=== PATIENT | male | born 1945 | race Caucasian/White ===

== ENCOUNTER 2018-01-16 08:00 | Outpatient (CLI) | payer MEDICARE, BC ==
[2018-01-16 13:03] LABS: BASOPHILS # (AUTO) 0.1 10^3/uL (0.0-0.1); BASOPHILS % (AUTO) 1.7 %; EOSINOPHILS # (AUTO) 0.1 10^3/uL (0.0-0.7); EOSINOPHILS % (AUTO) 2.2 %; HGB - HEMOGLOBIN 15.7 g/dL (14.0-18.0); LYMPHOCYTES # (AUTO) 1.5 10^3/uL (1.5-3.5); LYMPHOCYTES % (AUTO) 24.7 %; MEAN CORPUSCULAR HEMOGLOBIN 28.8 pg (27.0-31.0); MEAN CORPUSCULAR HGB CONC 33.4 g/dL (32.0-36.0); MEAN CORPUSCULAR VOLUME 86.5 fL (80.0-94.0); MEAN PLATELET VOLUME 8.9 fL (7.4-11.4); MONOCYTES # (AUTO) 0.8 10^3/uL (0.0-1.0); MONOCYTES % (AUTO) 12.9 %; NEUTROPHILS # (AUTO) 3.6 10^3/uL (1.5-6.6); NEUTROPHILS % (AUTO) 58.5 %; PLT - PLATELET COUNT 267 10^3/uL (130-450); RED BLOOD COUNT 5.44 10^6/uL (4.70-6.10); RED CELL DISTRIBUTION WIDTH 13.7 % (12.0-15.0); WHITE BLOOD COUNT 6.2 x10^3/uL (4.8-10.8)
[2018-01-16 13:26] LABS: ALBUMIN 4.4 g/dL (3.2-5.5); ALBUMIN/GLOBULIN RATIO 1.5 (1.0-2.2); ALKALINE PHOSPHATASE 60 IU/L (42-121); ALT ALANINE AMINOTRANSFERASE 21 IU/L (10-60); AST ASPARTATE AMINOTRANSFERASE 23 IU/L (10-42); BILIRUBIN,TOTAL 0.8 mg/dL (0.2-1.0); BUN - BLOOD UREA NITROGEN 13 mg/dL (6-20); CALCIUM 9.4 mg/dL (8.5-10.3); CARBON DIOXIDE - CO2 30 mmol/L (21-32); CHLORIDE 102 mmol/L (101-111); CHOL/HDL RATIO 5.9 (<5.0); CHOLESTEROL 205 mg/dL; CREATININE 1.1 mg/dL (0.6-1.2); GFR - MDRD 66 (>89); GLUCOSE 100 mg/dL (70-100); HDL CHOLESTEROL 35 mg/dL; LDL CHOLESTEROL,CALCULATED 144 mg/dL; LDL/HDL RATIO 4.1 (<3.6); SODIUM 138 mmol/L (135-145); TOTAL PROTEIN 7.4 g/dL (6.7-8.2); VLDL CHOLESTEROL 26 mg/dL
== END 2018-01-16 08:01 ==
LOC: LAB.WCP 08:00
PROVIDERS: ATTEND Family Medicine
DX: Z00.00 Encounter for general adult medical examination without abnormal findings (principal); Z13.29 Encounter for screening for other suspected endocrine disorder; Z13.220 Encounter for screening for lipoid disorders; Z12.5 Encounter for screening for malignant neoplasm of prostate; Z13.0 Encounter for screening for diseases of the blood and blood-forming organs and certain disorders involving the immune mechanism
CPT/HCPCS: 36415; 80053; 80061; 84443; 85025; G0103; 83721; 84153

== ENCOUNTER 2018-08-22 07:42 | Outpatient (CLI) | payer MEDICARE, BC ==
[2018-08-22 12:55] LABS: BASOPHILS # (AUTO) 0.1 10^3/uL (0.0-0.1); BASOPHILS % (AUTO) 1.1 %; EOSINOPHILS # (AUTO) 0.1 10^3/uL (0.0-0.7); EOSINOPHILS % (AUTO) 1.8 %; HGB - HEMOGLOBIN 15.3 g/dL (14.0-18.0); LYMPHOCYTES # (AUTO) 1.7 10^3/uL (1.5-3.5); LYMPHOCYTES % (AUTO) 25.8 %; MEAN CORPUSCULAR HEMOGLOBIN 28.5 pg (27.0-31.0); MEAN CORPUSCULAR HGB CONC 33.9 g/dL (32.0-36.0); MEAN PLATELET VOLUME 8.7 fL (7.4-11.4); MONOCYTES # (AUTO) 0.7 10^3/uL (0.0-1.0); MONOCYTES % (AUTO) 10.8 %; NEUTROPHILS # (AUTO) 3.9 10^3/uL (1.5-6.6); NEUTROPHILS % (AUTO) 60.5 %; PLT - PLATELET COUNT 253 10^3/uL (130-450); RED BLOOD COUNT 5.36 10^6/uL (4.70-6.10); RED CELL DISTRIBUTION WIDTH 13.6 % (12.0-15.0); WHITE BLOOD COUNT 6.4 x10^3/uL (4.8-10.8)
[2018-08-22 13:35] LABS: ALBUMIN 4.1 g/dL (3.2-5.5); ALBUMIN/GLOBULIN RATIO 1.3 (1.0-2.2); ALKALINE PHOSPHATASE 69 IU/L (42-121); ALT ALANINE AMINOTRANSFERASE 26 IU/L (10-60); AST ASPARTATE AMINOTRANSFERASE 26 IU/L (10-42); BILIRUBIN,TOTAL 0.6 mg/dL (0.2-1.0); BUN - BLOOD UREA NITROGEN 12 mg/dL (6-20); CALCIUM 9.2 mg/dL (8.5-10.3); CARBON DIOXIDE - CO2 30 mmol/L (21-32); CHLORIDE 105 mmol/L (101-111); CHOL/HDL RATIO 5.4 (<5.0); CHOLESTEROL 212 mg/dL; CREATININE 0.9 mg/dL (0.6-1.2); GFR - MDRD 83 (>89); GLUCOSE 89 mg/dL (70-100); HDL CHOLESTEROL 39 mg/dL; LDL CHOLESTEROL,CALCULATED 146 mg/dL; LDL/HDL RATIO 3.7 (<3.6); SODIUM 140 mmol/L (135-145); TOTAL PROTEIN 7.3 g/dL (6.7-8.2); VLDL CHOLESTEROL 27 mg/dL
== END 2018-08-22 23:59 | disposition home or self-care (01) ==
LOC: LAB.WCP 07:42
PROVIDERS: ATTEND Family Medicine
DX: Z13.0 Encounter for screening for diseases of the blood and blood-forming organs and certain disorders involving the immune mechanism (principal); Z13.220 Encounter for screening for lipoid disorders; Z12.5 Encounter for screening for malignant neoplasm of prostate; E78.00 Pure hypercholesterolemia, unspecified; Z13.29 Encounter for screening for other suspected endocrine disorder
CPT/HCPCS: 36415; 80053; 80061; 84443; 85025; G0103; 83721; 84153

== ENCOUNTER 2018-12-26 08:10 | Day surgery (SDC) | payer MEDICARE, BC ==
[2018-12-26] MEDS ORDERED: LACTATED RINGERS 1,000 ML IV ONE (08:55)
[2018-12-26] MEDS ORDERED: LIDO GARGLE 30 ML BOTTLE ONE (09:42)
[2018-12-26] MEDS ORDERED: LIDO GARGLE 30 ML BOTTLE PO ONE (10:04)
[2018-12-26] MEDS ORDERED: MIDAZOLAM 2 MG/2 ML VIAL IVP ONE (10:40)
[2018-12-26] MEDS ORDERED: fentaNYL 250 MCG/5 ML VIAL IVP ONE (10:40)
[2018-12-26 11:12] VITALS: BP 106/70
== END 2018-12-26 08:11 | disposition home or self-care (01) ==
LOC: SDS 08:10
PROVIDERS: ATTEND Internal Medicine Gastroenterology
PROC: 0DB68ZZ Excision of Stomach, Via Natural or Artificial Opening Endoscopic (ICD-10-PCS; 2018-12-26)
PROC: 0DJD8ZZ Inspection of Lower Intestinal Tract, Via Natural or Artificial Opening Endoscopic (ICD-10-PCS; principal; 2018-12-26 09:45)
PROC: 0DB38ZX Excision of Lower Esophagus, Via Natural or Artificial Opening Endoscopic, Diagnostic (ICD-10-PCS; 2018-12-26 09:45)
DX: R19.4 Change in bowel habit (principal); K57.30 Diverticulosis of large intestine without perforation or abscess without bleeding; K21.9 Gastro-esophageal reflux disease without esophagitis; K31.7 Polyp of stomach and duodenum; K44.9 Diaphragmatic hernia without obstruction or gangrene; R14.0 Abdominal distension (gaseous)
CPT/HCPCS: 43239; 45378; A9270; J3010; J7120

== ENCOUNTER 2019-06-04 15:22 | Outpatient (CLI) | payer MEDICARE, BC ==
--- NOTE | 2019-06-05 10:41 | XRAY Report ---
Reason: FOOT PAIN Procedure Date: 06/04/2019 Accession Number: [id number] / [id number] Procedure: XRN - Foot 3 View LT CPT Code: FULL RESULT: EXAM: LEFT FOOT RADIOGRAPHY EXAM DATE: 06/04/2019 03:38 PM. CLINICAL HISTORY: Foot pain. COMPARISON: None. TECHNIQUE: 3 views. FINDINGS: Bones: Calcaneal spurs. No fractures or bone lesions. Joints: Normal. No subluxations. Soft Tissues: Normal. No soft tissue swelling. IMPRESSION: 1. No acute abnormality seen in the left foot. 2. Calcaneal spurs. RADIA
== END 2019-06-04 15:23 | disposition home or self-care (01) ==
LOC: DI.N 15:22
PROVIDERS: ATTEND Family Medicine
DX: M77.32 Calcaneal spur, left foot (principal)

== ENCOUNTER 2019-07-21 07:37 | Outpatient (CLI) | payer MEDICARE, BC ==
[2019-07-21 12:21] LABS: BASOPHILS # (AUTO) 0.1 10^3/uL (0.0-0.1); BASOPHILS % (AUTO) 1.3 %; EOSINOPHILS # (AUTO) 0.1 10^3/uL (0.0-0.7); EOSINOPHILS % (AUTO) 1.9 %; HGB - HEMOGLOBIN 15.8 g/dL (14.0-18.0); LYMPHOCYTES # (AUTO) 1.6 10^3/uL (1.5-3.5); LYMPHOCYTES % (AUTO) 25.7 %; MEAN CORPUSCULAR HGB CONC 31.7 g/dL (32.0-36.0); MEAN CORPUSCULAR VOLUME 88.5 fL (80.0-94.0); MEAN PLATELET VOLUME 10.7 fL (7.4-11.4); MONOCYTES # (AUTO) 0.6 10^3/uL (0.0-1.0); NEUTROPHILS # (AUTO) 3.8 10^3/uL (1.5-6.6); NEUTROPHILS % (AUTO) 60.8 %; PLT - PLATELET COUNT 280 10^3/uL (130-450); RED BLOOD COUNT 5.64 10^6/uL (4.70-6.10); RED CELL DISTRIBUTION WIDTH 13.3 % (12.0-15.0); WHITE BLOOD COUNT 6.2 x10^3/uL (4.8-10.8)
[2019-07-21 12:40] LABS: ALBUMIN 4.1 g/dL (3.2-5.5); ALBUMIN/GLOBULIN RATIO 1.3 (1.0-2.2); ALKALINE PHOSPHATASE 56 IU/L (42-121); ALT ALANINE AMINOTRANSFERASE 23 IU/L (10-60); AST ASPARTATE AMINOTRANSFERASE 21 IU/L (10-42); BILIRUBIN,TOTAL 1.2 mg/dL (0.2-1.0); BUN - BLOOD UREA NITROGEN 12 mg/dL (6-20); CALCIUM 9.6 mg/dL (8.5-10.3); CARBON DIOXIDE - CO2 31 mmol/L (21-32); CHLORIDE 104 mmol/L (101-111); CHOL/HDL RATIO 6.1 (<5.0); CHOLESTEROL 206 mg/dL; CREATININE 0.9 mg/dL (0.6-1.2); GFR - MDRD 83 (>89); GLUCOSE 106 mg/dL (70-100); HDL CHOLESTEROL 34 mg/dL; LDL CHOLESTEROL,CALCULATED 134 mg/dL; LDL/HDL RATIO 3.9 (<3.6); SODIUM 142 mmol/L (135-145); TOTAL PROTEIN 7.3 g/dL (6.7-8.2); VLDL CHOLESTEROL 38 mg/dL
== END 2019-07-21 07:38 | disposition home or self-care (01) ==
LOC: LAB.N 07:37
PROVIDERS: ATTEND Family Medicine
DX: G62.9 Polyneuropathy, unspecified (principal); E78.00 Pure hypercholesterolemia, unspecified; R03.0 Elevated blood-pressure reading, without diagnosis of hypertension; R04.0 Epistaxis
CPT/HCPCS: 36415; 80053; 80061; 82306; 82607; 82746; 83036; 83721; 84443; 85025

== ENCOUNTER 2019-09-26 09:29 | Outpatient (CLI) | payer MEDICARE, BC | END 2019-09-26 23:59 | disposition home or self-care (01) | LOC: LAB.N 09:29 | PROVIDERS: ATTEND Family Medicine | DX: E55.9 Vitamin D deficiency, unspecified (principal) | CPT/HCPCS: 36415; 82306 ==

== ENCOUNTER 2019-10-03 14:27 | Outpatient (CLI) | payer MEDICARE, BC ==
[2019-10-03 19:28] LABS: HB2 TOTAL 16.1 g/dL; HEMOGLOBIN A1C 0.6 g/dL; HEMOGLOBIN A1C % 5.6 % (4.6-6.2)
== END 2019-10-03 23:59 | disposition home or self-care (01) ==
LOC: LAB.N 14:27
PROVIDERS: ATTEND Family Medicine
DX: R73.9 Hyperglycemia, unspecified (principal)
CPT/HCPCS: 36415; 83036

== ENCOUNTER 2020-02-04 07:07 | Outpatient (CLI) | payer MEDICARE, BC | END 2020-02-04 23:59 | disposition home or self-care (01) | LOC: LAB.WCP 07:07 | PROVIDERS: ATTEND Family Medicine | DX: E55.9 Vitamin D deficiency, unspecified (principal) | CPT/HCPCS: 36415; 82306 ==

== ENCOUNTER 2020-04-16 07:28 | Outpatient (CLI) | payer MEDICARE, BC | END 2020-04-16 23:59 | disposition home or self-care (01) | LOC: LAB.WCP 07:28 | PROVIDERS: ATTEND Family Medicine | DX: I10 Essential (primary) hypertension (principal); G62.9 Polyneuropathy, unspecified | CPT/HCPCS: 36415; 84630 ==

== ENCOUNTER 2020-07-06 07:00 | Outpatient (CLI) | payer MEDICARE, BC ==
[2020-07-06 12:54] LABS: ALBUMIN 4.2 g/dL (3.2-5.5); ALBUMIN/GLOBULIN RATIO 1.3 (1.0-2.2); BILIRUBIN,TOTAL 0.8 mg/dL (0.2-1.0); CALCIUM 9.4 mg/dL (8.5-10.3); CREATININE 1.3 mg/dL (0.6-1.2); TOTAL PROTEIN 7.4 g/dL (6.7-8.2)
== END 2020-07-06 23:59 | disposition home or self-care (01) ==
LOC: LAB.WCP 07:00
PROVIDERS: ATTEND Family Medicine
DX: N18.30 Chronic kidney disease, stage 3 unspecified (principal)
CPT/HCPCS: 36415; 80053

== ENCOUNTER → 2020-08-23 | Outpatient (CLI) | payer MEDICARE, BC ==
[2020-08-23 14:03] LABS: ALBUMIN 4.2 g/dL (3.2-5.5); ALBUMIN/GLOBULIN RATIO 1.5 (1.0-2.2); BILIRUBIN,TOTAL 0.6 mg/dL (0.2-1.0); CALCIUM 9.6 mg/dL (8.5-10.3); CREATININE 1.1 mg/dL (0.6-1.2)
== END ==
LOC: LAB.WCP 08:00
PROVIDERS: ATTEND Internal Medicine
DX: N18.30 Chronic kidney disease, stage 3 unspecified (principal)
CPT/HCPCS: 36415; 80053

== ENCOUNTER 2020-08-31 07:09 | Outpatient (CLI) | payer MEDICARE, BC ==
[2020-08-31 13:23] LABS: CHOL/HDL RATIO 6.2 (<5.0); CHOLESTEROL 229 mg/dL; HDL CHOLESTEROL 37 mg/dL; LDL CHOLESTEROL,CALCULATED 162 mg/dL; LDL/HDL RATIO 4.4 (<3.6); VLDL CHOLESTEROL 30 mg/dL
[2020-08-31 13:30] LABS: CREATININE,URINE 61.8 mg/dL
[2020-08-31 13:33] LABS: MICROALBUMIN,URINE < 0.2 mg/dL (0-300.0)
[2020-08-31 13:51] LABS: HEMOGLOBIN A1c% 5.5 % (4.27-6.07)
[2020-09-03 16:52] LABS: ALBUMIN 4.2 g/dL (3.8-4.8); ALPHA 1 GLOBULIN 0.3 g/dL (0.2-0.3); ALPHA 2 GLOBULIN 0.8 g/dL (0.5-0.9); BETA 1 GLOBULIN 0.4 g/dL (0.4-0.6); BETA 2 GLOBULIN 0.3 g/dL (0.2-0.5)
== END 2020-08-31 23:59 | disposition home or self-care (01) ==
LOC: LAB.WCP 07:09
PROVIDERS: ATTEND Internal Medicine
DX: G62.9 Polyneuropathy, unspecified (principal); I10 Essential (primary) hypertension; R73.9 Hyperglycemia, unspecified
CPT/HCPCS: 36415; 80061; 81599; 82043; 82570; 82607; 83036; 83721; 84155; 84165; 84443; 86334

== ENCOUNTER → 2020-09-03 | Outpatient (CLI) | payer MEDICARE, BC ==
[2020-09-06 19:47] LABS: ALBUMIN 4.2 g/dL (3.8-4.8); ALPHA 1 GLOBULIN 0.3 g/dL (0.2-0.3); ALPHA 2 GLOBULIN 0.7 g/dL (0.5-0.9); BETA 1 GLOBULIN 0.4 g/dL (0.4-0.6); BETA 2 GLOBULIN 0.3 g/dL (0.2-0.5); GAMMA GLOBULIN 1.1 g/dL (0.8-1.7)
== END ==
LOC: LAB.WCP 08:00
PROVIDERS: ATTEND Internal Medicine
DX: G62.9 Polyneuropathy, unspecified (principal)
CPT/HCPCS: 84155; 84165

== ENCOUNTER 2021-03-22 08:00 | Outpatient (CLI) | payer MEDICARE, BC ==
[2021-03-22 13:06] LABS: BUN - BLOOD UREA NITROGEN 22 mg/dL (6-20); CALCIUM 9.2 mg/dL (8.5-10.3); CARBON DIOXIDE - CO2 26 mmol/L (21-32); CHLORIDE 106 mmol/L (101-111); CHOL/HDL RATIO 7.5 (<5.0); CHOLESTEROL 210 mg/dL; CREATININE 1.2 mg/dL (0.6-1.2); GFR - MDRD 59 (>89); GLUCOSE 96 mg/dL (70-100); HDL CHOLESTEROL 28 mg/dL; LDL CHOLESTEROL,CALCULATED 144 mg/dL; LDL/HDL RATIO 5.1 (<3.6); POTASSIUM 3.9 mmol/L (3.5-5.0); SODIUM 144 mmol/L (135-145); TRIGLYCERIDES 190 mg/dL; VLDL CHOLESTEROL 38 mg/dL
== END 2021-03-22 23:59 | disposition home or self-care (01) ==
LOC: LAB.WCP 08:00
PROVIDERS: ATTEND Internal Medicine
DX: I10 Essential (primary) hypertension (principal)
CPT/HCPCS: 36415; 80048; 80061; 83721

== ENCOUNTER 2021-06-22 15:07 | Outpatient (CLI) | payer MEDICARE, BC ==
[2021-06-22 18:18] LABS: ALT ALANINE AMINOTRANSFERASE 19 IU/L (10-60); BUN - BLOOD UREA NITROGEN 16 mg/dL (6-20); CALCIUM 9.2 mg/dL (8.5-10.3); CARBON DIOXIDE - CO2 31 mmol/L (21-32); CHLORIDE 102 mmol/L (101-111); CHOL/HDL RATIO 3.9 (<5.0); CHOLESTEROL 125 mg/dL; CREATININE 1.1 mg/dL (0.6-1.2); GFR - MDRD 65 (>89); GLUCOSE 94 mg/dL (70-100); HDL CHOLESTEROL 32 mg/dL; LDL CHOLESTEROL,CALCULATED 43 mg/dL; LDL/HDL RATIO 1.3 (<3.6); POTASSIUM 4.1 mmol/L (3.5-5.0); SODIUM 140 mmol/L (135-145); TRIGLYCERIDES 250 mg/dL; VLDL CHOLESTEROL 50 mg/dL
== END 2021-06-22 23:59 | disposition home or self-care (01) ==
LOC: LAB.WCP 15:07
PROVIDERS: ATTEND Internal Medicine
DX: E78.5 Hyperlipidemia, unspecified (principal); I10 Essential (primary) hypertension
CPT/HCPCS: 36415; 80048; 80061; 83721; 84460

== ENCOUNTER 2021-09-15 08:00 | Outpatient (CLI) | payer MEDICARE, BC ==
[2021-09-15 12:26] LABS: BASOPHILS # (AUTO) 0.1 10^3/uL (0.0-0.1); BASOPHILS % (AUTO) 1.3 %; EOSINOPHILS # (AUTO) 0.2 10^3/uL (0.0-0.7); EOSINOPHILS % (AUTO) 2.1 %; HCT - HEMATOCRIT 45.4 % (42.0-52.0); HGB - HEMOGLOBIN 14.6 g/dL (14.0-18.0); LYMPHOCYTES % (AUTO) 28.1 %; MEAN CORPUSCULAR HEMOGLOBIN 28.7 pg (27.0-31.0); MEAN CORPUSCULAR HGB CONC 32.2 g/dL (32.0-36.0); MEAN CORPUSCULAR VOLUME 89.2 fL (80.0-94.0); MEAN PLATELET VOLUME 11.7 fL (7.4-11.4); MONOCYTES # (AUTO) 0.8 10^3/uL (0.0-1.0); NEUTROPHILS # (AUTO) 3.9 10^3/uL (1.5-6.6); NEUTROPHILS % (AUTO) 56.2 %; PLT - PLATELET COUNT 241 10^3/uL (130-450); RED BLOOD COUNT 5.09 10^6/uL (4.70-6.10); RED CELL DISTRIBUTION WIDTH 13.2 % (12.0-15.0)
[2021-09-15 12:45] LABS: ALBUMIN/GLOBULIN RATIO 1.3 (1.0-2.2); ALKALINE PHOSPHATASE 55 IU/L (42-121); ALT ALANINE AMINOTRANSFERASE 16 IU/L (10-60); AST ASPARTATE AMINOTRANSFERASE 18 IU/L (10-42); BILIRUBIN,TOTAL 0.8 mg/dL (0.2-1.0); BUN - BLOOD UREA NITROGEN 14 mg/dL (6-20); CALCIUM 9.3 mg/dL (8.5-10.3); CARBON DIOXIDE - CO2 27 mmol/L (21-32); CHLORIDE 104 mmol/L (101-111); CHOL/HDL RATIO 3.6 (<5.0); CHOLESTEROL 135 mg/dL; CREATININE 1.2 mg/dL (0.6-1.2); GFR - MDRD 59 (>89); GLUCOSE 97 mg/dL (70-100); HDL CHOLESTEROL 37 mg/dL; LDL CHOLESTEROL,CALCULATED 79 mg/dL; LDL/HDL RATIO 2.1 (<3.6); POTASSIUM 3.7 mmol/L (3.5-5.0); SODIUM 139 mmol/L (135-145); TOTAL PROTEIN 7.2 g/dL (6.7-8.2); TRIGLYCERIDES 95 mg/dL; VLDL CHOLESTEROL 19 mg/dL
[2021-09-15 12:55] LABS: THYROID STIMULATING HORMONE 1.42 uIU/mL (0.34-5.60)
== END 2021-09-15 23:59 | disposition home or self-care (01) ==
LOC: LAB.WCP 08:00
PROVIDERS: ATTEND Internal Medicine
DX: I10 Essential (primary) hypertension (principal); E78.5 Hyperlipidemia, unspecified; N40.0 Benign prostatic hyperplasia without lower urinary tract symptoms; Z79.899 Other long term (current) drug therapy
CPT/HCPCS: 36415; 80053; 80061; 83721; 84153; 84443; 85025

== ENCOUNTER 2022-01-31 07:06 | Outpatient (CLI) | payer MEDICARE, BC ==
[2022-01-31 11:53] LABS: CREATININE,URINE 116.1 mg/dL; MICROALBUM/CREATININE RATIO,UR 4.3 ug/mg (<30.0); MICROALBUMIN,URINE 0.5 mg/dL (0-300.0)
[2022-01-31 11:56] LABS: ESTIMATED AVERAGE GLUCOSE 111 mg/dL (70-100); HEMOGLOBIN A1c% 5.5 % (4.27-6.07)
[2022-01-31 11:58] LABS: THYROID STIMULATING HORMONE 1.33 uIU/mL (0.34-5.60)
[2022-01-31 12:02] LABS: CALCIUM 9.4 mg/dL (8.5-10.3); CREATININE 1.1 mg/dL (0.6-1.2); POTASSIUM 3.8 mmol/L (3.5-5.0)
== END 2022-01-31 07:07 | disposition home or self-care (01) ==
LOC: LAB.N 07:06
PROVIDERS: ATTEND Internal Medicine
DX: E53.8 Deficiency of other specified B group vitamins (principal); R73.9 Hyperglycemia, unspecified; R68.89 Other general symptoms and signs
CPT/HCPCS: 36415; 80048; 82043; 82570; 82607; 83036; 84443

== ENCOUNTER 2022-06-26 15:23 | Outpatient (CLI) | payer MEDICARE, BC ==
--- NOTE | 2022-06-27 17:34 | XRAY Report ---
PROCEDURE: Ribs Bilat w/Chest 4 View INDICATIONS: CHEST WALL PX TECHNIQUE: 6 views of the bilateral ribs were acquired, along with a single view chest. COMPARISON: None FINDINGS: Surgical changes and devices: None. Bones and chest wall: No fractures or dislocations. No suspicious bony lesions. Overlying soft tis sues appear unremarkable. Lungs and pleura: No pleural effusions or pneumothorax. Lungs appear clear. Mediastinum: Mediastinal contours appear normal. Heart size is normal. IMPRESSION: No obvious displaced rib fracture is seen. No suspicious rib lesion. No acute cardiopulmonary patholo gy. Reviewed by: Kofi Ramirez MD on 06/27/2022 5:33 PM PDT Approved by: Kofi Ramirez MD on 06/27/2022 5:33 PM PDT Station ID: [id number]
== END 2022-06-26 15:24 | disposition home or self-care (01) ==
LOC: DI.N 15:23
PROVIDERS: ATTEND Internal Medicine
DX: R07.89 Other chest pain (principal)

== ENCOUNTER 2022-08-31 07:28 | Outpatient (CLI) | payer MEDICARE, BC ==
[2022-08-31 12:29] LABS: BASOPHILS # (AUTO) 0.1 10^3/uL (0.0-0.1); BASOPHILS % (AUTO) 1.2 %; EOSINOPHILS # (AUTO) 0.2 10^3/uL (0.0-0.7); EOSINOPHILS % (AUTO) 2.6 %; HCT - HEMATOCRIT 46.4 % (42.0-52.0); HGB - HEMOGLOBIN 14.7 g/dL (14.0-18.0); LYMPHOCYTES # (AUTO) 1.5 10^3/uL (1.5-3.5); LYMPHOCYTES % (AUTO) 26.4 %; MEAN CORPUSCULAR HEMOGLOBIN 28.4 pg (27.0-31.0); MEAN CORPUSCULAR HGB CONC 31.7 g/dL (32.0-36.0); MEAN CORPUSCULAR VOLUME 89.7 fL (80.0-94.0); MEAN PLATELET VOLUME 11.4 fL (7.4-11.4); MONOCYTES # (AUTO) 0.7 10^3/uL (0.0-1.0); MONOCYTES % (AUTO) 12.2 %; NEUTROPHILS # (AUTO) 3.3 10^3/uL (1.5-6.6); NEUTROPHILS % (AUTO) 57.4 %; PLT - PLATELET COUNT 247 10^3/uL (130-450); RED BLOOD COUNT 5.17 10^6/uL (4.70-6.10); RED CELL DISTRIBUTION WIDTH 13.3 % (12.0-15.0); WHITE BLOOD COUNT 5.7 x10^3/uL (4.8-10.8)
[2022-08-31 12:49] LABS: ESTIMATED AVERAGE GLUCOSE 120 mg/dL (70-100); HEMOGLOBIN A1c% 5.8 % (4.27-6.07)
[2022-08-31 12:50] LABS: THYROID STIMULATING HORMONE 1.41 uIU/mL (0.34-5.60)
[2022-08-31 13:13] LABS: ALBUMIN 4.1 g/dL (3.2-5.5); ALBUMIN/GLOBULIN RATIO 1.3 (1.0-2.2); ALKALINE PHOSPHATASE 52 IU/L (42-121); ALT ALANINE AMINOTRANSFERASE 20 IU/L (10-60); AST ASPARTATE AMINOTRANSFERASE 23 IU/L (10-42); BILIRUBIN,TOTAL 0.8 mg/dL (0.2-1.0); BUN - BLOOD UREA NITROGEN 26 mg/dL (6-20); CALCIUM 9.4 mg/dL (8.5-10.3); CARBON DIOXIDE - CO2 28 mmol/L (21-32); CHLORIDE 105 mmol/L (101-111); CHOL/HDL RATIO 3.5 (<5.0); CHOLESTEROL 131 mg/dL; CREATININE 1.2 mg/dL (0.6-1.2); GFR - MDRD 59 (>89); GLUCOSE 97 mg/dL (70-100); HDL CHOLESTEROL 37 mg/dL; LDL CHOLESTEROL,CALCULATED 74 mg/dL; POTASSIUM 4.5 mmol/L (3.5-5.0); SODIUM 141 mmol/L (135-145); TOTAL PROTEIN 7.3 g/dL (6.7-8.2); TRIGLYCERIDES 102 mg/dL; VLDL CHOLESTEROL 20 mg/dL
== END 2022-08-31 07:29 | disposition home or self-care (01) ==
LOC: LAB.N 07:28
PROVIDERS: ATTEND Internal Medicine
DX: E78.5 Hyperlipidemia, unspecified (principal); R73.9 Hyperglycemia, unspecified; E55.9 Vitamin D deficiency, unspecified; E53.8 Deficiency of other specified B group vitamins; N40.0 Benign prostatic hyperplasia without lower urinary tract symptoms; F43.20 Adjustment disorder, unspecified; I49.3 Ventricular premature depolarization
CPT/HCPCS: 36415; 80053; 80061; 82306; 82607; 83036; 83721; 84153; 84443; 85025

== ENCOUNTER 2022-12-25 15:54 | Outpatient (CLI) | payer MEDICARE, BC ==
--- NOTE | 2022-12-26 12:53 | Ultrasound Report ---
PROCEDURE: Duplex Lwr Ext Arterial Bilat INDICATIONS: BILATERAL CLAUDICATION TECHNIQUE: Color and pulse Doppler interrogation was performed of both lower extremity arterial systems, with im age documentation. COMPARISON: None FINDINGS: Right lower extremity: Common femoral artery: 188.5 cm/sec, with triphasic flow. Deep femoral artery: 139.4 cm/sec, with biphasic flow. Proximal superficial femoral artery: 118.8 cm/sec, with biphasic flow. Mid superficial femoral artery: 129.1 cm/sec, with triphasic flow. Distal superficial femoral artery: 113.1 cm/sec, with triphasic flow. Popliteal artery: 151.4 cm/sec, with triphasic flow. Posterior tibial artery: 66.0 cm/sec, with triphasic flow. Anterior tibial artery/dorsalis pedis: 100.6 cm/sec, with triphasic flow. Ball-scale imaging description: Patent vessels with normal waveforms. Left lower extremity: Common femoral artery: 128.5 cm/sec, with triphasic flow. Deep femoral artery: 149.4 cm/sec, with triphasic flow. Proximal superficial femoral artery: 117.5 cm/sec, with triphasic flow. Mid superficial femoral artery: 135.0 cm/sec, with triphasic flow. Distal superficial femoral artery: 137.6 cm/sec, with triphasic flow. Popliteal artery: 102.3 cm/sec, with triphasic flow. Posterior tibial artery: 64.9 cm/sec, with triphasic flow. Anterior tibial artery/dorsalis pedis: 151.1 cm/sec, with biphasic flow. Ball-scale imaging description: Patent vessels with normal waveforms. IMPRESSION: Unremarkable bilateral lower extremity duplex arterial ultrasound. Reviewed by: Sreekanth Becerril MD on 12/26/2022 12:52 PM PDT Approved by: Sreekanth Becerril MD on 12/26/2022 12:52 PM PDT Station ID: [id number]
== END 2022-12-25 15:55 | disposition home or self-care (01) ==
LOC: DI 15:54
PROVIDERS: ATTEND Internal Medicine
DX: I73.9 Peripheral vascular disease, unspecified (principal)
CPT/HCPCS: 93925

== ENCOUNTER 2023-04-19 07:10 | Outpatient (CLI) | payer MEDICARE, BC ==
[2023-04-19 12:25] LABS: BASOPHILS # (AUTO) 0.1 10^3/uL (0.0-0.1); BASOPHILS % (AUTO) 1.2 %; EOSINOPHILS # (AUTO) 0.1 10^3/uL (0.0-0.7); EOSINOPHILS % (AUTO) 2.5 %; HCT - HEMATOCRIT 42.1 % (42.0-52.0); HGB - HEMOGLOBIN 13.8 g/dL (14.0-18.0); LYMPHOCYTES # (AUTO) 1.5 10^3/uL (1.5-3.5); LYMPHOCYTES % (AUTO) 25.6 %; MEAN CORPUSCULAR HEMOGLOBIN 29.6 pg (27.0-31.0); MEAN CORPUSCULAR HGB CONC 32.8 g/dL (32.0-36.0); MEAN CORPUSCULAR VOLUME 90.3 fL (80.0-94.0); MONOCYTES # (AUTO) 0.7 10^3/uL (0.0-1.0); MONOCYTES % (AUTO) 11.4 %; NEUTROPHILS # (AUTO) 3.4 10^3/uL (1.5-6.6); NEUTROPHILS % (AUTO) 59.1 %; PLT - PLATELET COUNT 270 10^3/uL (130-450); RED BLOOD COUNT 4.66 10^6/uL (4.70-6.10); RED CELL DISTRIBUTION WIDTH 12.9 % (12.0-15.0); WHITE BLOOD COUNT 5.7 x10^3/uL (4.8-10.8)
[2023-04-19 13:05] LABS: ALBUMIN 4.3 g/dL (3.2-5.5); ALBUMIN/GLOBULIN RATIO 1.5 (1.0-2.2); ALKALINE PHOSPHATASE 54 IU/L (42-121); ALT ALANINE AMINOTRANSFERASE 18 IU/L (10-60); AST ASPARTATE AMINOTRANSFERASE 19 IU/L (10-42); BILIRUBIN,TOTAL 0.6 mg/dL (0.2-1.0); BUN - BLOOD UREA NITROGEN 26 mg/dL (6-20); CALCIUM 9.8 mg/dL (8.5-10.3); CARBON DIOXIDE - CO2 29 mmol/L (21-32); CHLORIDE 105 mmol/L (101-111); CHOL/HDL RATIO 3.6 (<5.0); CHOLESTEROL 129 mg/dL; CREATININE 1.2 mg/dL (0.6-1.3); GFR - MDRD 59 (>89); GLUCOSE 106 mg/dL (74-104); HDL CHOLESTEROL 36 mg/dL; LDL CHOLESTEROL,CALCULATED 65 mg/dL; LDL/HDL RATIO 1.8 (<3.6); POTASSIUM 3.9 mmol/L (3.5-4.5); SODIUM 141 mmol/L (135-145); TOTAL PROTEIN 7.1 g/dL (6.4-8.9); TRIGLYCERIDES 140 mg/dL (48-352); VLDL CHOLESTEROL 28 mg/dL
[2023-04-19 13:09] LABS: THYROID STIMULATING HORMONE 1.22 uIU/mL (0.34-5.60)
[2023-04-19 13:19] LABS: CREATININE,URINE 140.8 mg/dL; MICROALBUMIN,URINE 0.7 mg/dL
[2023-04-19 13:26] LABS: ESTIMATED AVERAGE GLUCOSE 120 mg/dL (70-100); HEMOGLOBIN A1c% 5.8 % (4.27-6.07)
[2023-04-23 17:08] LABS: A/G RATIO 1.3 (0.7-1.7); ALBUMIN 3.6 g/dL (2.9-4.4); ALPHA-1-GLOBULIN 0.2 g/dL (0.0-0.4); ALPHA-2-GLOBULIN 0.7 g/dL (0.4-1.0); GAMMA GLOBULIN 1.1 g/dL (0.4-1.8); IMMUNOGLOBULIN A (IGA) 220 mg/dL (61-437); IMMUNOGLOBULIN G (IGG) 1010 mg/dL (603-1613); IMMUNOGLOBULIN M (IGM) 44 mg/dL (15-143); M-SPIKE Not Observed g/dL (Not Observed); PROTEIN TOTAL 6.6 g/dL (6.0-8.5)
== END 2023-04-19 07:11 | disposition home or self-care (01) ==
LOC: LAB.N 07:10
PROVIDERS: ATTEND Internal Medicine
DX: E78.5 Hyperlipidemia, unspecified (principal); R73.9 Hyperglycemia, unspecified; E53.8 Deficiency of other specified B group vitamins; N40.0 Benign prostatic hyperplasia without lower urinary tract symptoms; I10 Essential (primary) hypertension; G62.9 Polyneuropathy, unspecified
CPT/HCPCS: 36415; 80053; 80061; 82043; 82570; 82607; 82784; 83036; 83721; 84153; 84155; 84165; 84443; 85025; 86334

== ENCOUNTER 2023-07-08 09:37 | Observation (INO) | payer MEDICARE, BC ==
--- NOTE | 2023-07-08 09:48 | ED Physician Documentation ---
History of Present Illness - Stated complaint Stated Complaint: SOA,CHEST PX,HIGH BP - History obtained from History obtained from: Patient - Additonal information Additional information: 77-year-old gentleman comes the emergency department by private vehicle accompanied by his son-in-law for the evaluation of shortness of breath and chest pressure. He said very mild intermittent chest pressure nonexertional for the last 2 weeks. Over the last several days he has been breathless especially at night or when he is trying to sleep or with exertion. He is also had some pedal edema. He has a history of hypertension and hyperlipidemia. No heart or lung problems. No history of CHF. About 2 months ago he was on hydrochlorothiazide but that was stopped due to orthostatic lightheadedness. He notes his blood pressure has been quite high the last few days. 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 - Present Medications Home Medications: Ambulatory Orders Medication Instructions Recorded Confirmed Gabapentin [Neurontin] 400 mg PO TID 07/08/23 Rosuvastatin Calcium [Crestor] 10 mg PO QPM 07/08/23 Tamsulosin [Flomax] 0.4 mg PO DAILY 07/08/23 lisinopriL [Lisinopril] 40 mg PO DAILY 07/08/23 - Allergies Allergies/Adverse Reactions: Allergies Allergy/AdvReac Type Severity Reaction Status Date / Time No Known Drug Allergies Allergy Verified 07/08/23 10:52 PD ED PE NORMAL - Vitals Vital signs reviewed: Yes - General General: Alert and oriented X 3, No acute distress, Other (Mild hard of hearing) - HEENT HEENT: PERRL, EOMI - Neck Neck: Supple, no meningeal sign, No bony TTP - Cardiac Cardiac: Other (Irregularly irregular without murmur) - Respiratory Respiratory: No respiratory distress, Clear bilaterally - Abdomen Abdomen: Non tender - Back Back: No CVA TTP, No spinal TTP - Derm Derm: Normal color, Warm and dry - Extremities Extremities: No calf tenderness / cord, Other (1+ pitting pedal edema, symmetric) - Neuro Neuro: Alert and oriented X 3, Normal speech Results - Vitals Vitals: Vital Signs - 24 hr 07/08/23 09:48 Temperature 36.7 C Heart Rate 82 Respiratory 22 Rate Blood Pressure 165/112 H O2 Saturation 97 Oxygen O2 Source Room air - EKG (time done) 0945 EKG releavant findings:: EKG personally interpreted by author of this note. Relevant findings are: Rhythm: Atrial fibrillation (w pvcs) [place]: Normal Ischemia: Non specific changes. No: ST elevation c/w ischemia - Labs Labs: Laboratory Tests 07/08/23 07/08/23 07/08/23 10:03 10:03 10:03 WBC 8.7 RBC 5.13 Hgb 14.8 Hct 45.1 MCV 87.9 MCH 28.8 MCHC 32.8 RDW 12.7 Plt Count 199 MPV 11.1 Neut # (Auto) 6.4 Lymph # (Auto) 1.3 L [place] # (Auto) 0.8 Eos # (Auto) 0.1 Baso # (Auto) 0.1 Absolute Nucleated RBC 0.00 Nucleated RBC % 0.0 D-Dimer Sodium 142 Potassium 3.7 Chloride 109 Carbon Dioxide 26 Anion Gap 7.0 BUN 21 H Creatinine 1.2 Estimated GFR (MDRD) 59 L Glucose 104 Calcium 9.4 Total Bilirubin 0.7 AST 15 ALT 13 Alkaline Phosphatase 67 Troponin I High Sens 26.2 H* B-Natriuretic Peptide 614 H Total Protein 6.8 Albumin 4.2 Globulin 2.6 Albumin/Globulin Ratio 1.6 Lipase 34 07/08/23 11:51 WBC RBC Hgb Hct MCV MCH MCHC RDW Plt Count MPV Neut # (Auto) Lymph # (Auto) [place] # (Auto) Eos # (Auto) Baso # (Auto) Absolute Nucleated RBC Nucleated RBC % D-Dimer 250.5 Sodium Potassium Chloride Carbon Dioxide Anion Gap BUN Creatinine Estimated GFR (MDRD) Glucose Calcium Total Bilirubin AST ALT Alkaline Phosphatase Troponin I High Sens B-Natriuretic Peptide Total Protein Albumin Globulin Albumin/Globulin Ratio Lipase - Rads (name of study) Single view chest x-ray shows low lung volumes, atelectasis right base, mild pulmonary edema, borderline cardiomegaly Relevant Findings:: Final report received, EMP independent interpretation of test PD Medical Decision Making - ED course ED course: 77-year-old gentleman presents with several weeks of chest tightness now breathlessness. He is found to be in atrial fibrillation with frequent PVCs. No murmur. Lungs are clear but he does have peripheral evidence of mild fluid overload. And he is quite hypertensive. Probably CHF related to A-fib. We will check cardiac markers and give a dose of Imdur for blood pressure pending work-up. 77-year-old gentleman presents with signs and symptoms of new onset heart failure in the setting of also probably new onset atrial fibrillation. He has a history of neither. He does appear modestly fluid overloaded. Work-up in the emergency department shows an EKG with new onset A-fib, frequent PVCs. CBC and CMP are relatively normal. Troponin modestly elevated at 26.2 which I do not think represents acute ischemia given the longevity of his symptoms. His BNP is elevated at 614 consistent with heart failure and also has mild pulmonary edema on x-ray. He is hypertensive but rate controlled and was administered Imdur here for blood pressure control and 20 mg of IV Lasix as he is Lasix chyna. Will place in observation and spoke with Dr. Thomson for same at 10:50 AM. Departure - Departure Disposition: ED Place in Observation Clinical Impression: Chest pain Qualifiers: Chest pain type: unspecified Qualified Code(s): R07.9 - Chest pain, unspecified Atrial fibrillation Qualifiers: Atrial fibrillation type: unspecified Qualified Code(s): I48.91 - Unspecified atrial fibrillation Congestive heart failure Qualifiers: Heart failure type: unspecified Heart failure chronicity: acute Qualified Code(s): I50.9 - Heart failure, unspecified Condition: Serious Forms: PCP List
[2023-07-08] MEDS ORDERED: ISOSORBIDE MONONITRATE ER 30 MG TABLET PO STA (09:53)
[2023-07-08 10:09] LABS: BASOPHILS # (AUTO) 0.1 10^3/uL (0.0-0.1); BASOPHILS % (AUTO) 0.9 %; EOSINOPHILS # (AUTO) 0.1 10^3/uL (0.0-0.7); EOSINOPHILS % (AUTO) 0.9 %; HCT - HEMATOCRIT 45.1 % (42.0-52.0); HGB - HEMOGLOBIN 14.8 g/dL (14.0-18.0); LYMPHOCYTES # (AUTO) 1.3 10^3/uL (1.5-3.5); LYMPHOCYTES % (AUTO) 14.8 %; MEAN CORPUSCULAR HEMOGLOBIN 28.8 pg (27.0-31.0); MEAN CORPUSCULAR HGB CONC 32.8 g/dL (32.0-36.0); MEAN CORPUSCULAR VOLUME 87.9 fL (80.0-94.0); MEAN PLATELET VOLUME 11.1 fL (7.4-11.4); MONOCYTES # (AUTO) 0.8 10^3/uL (0.0-1.0); NEUTROPHILS # (AUTO) 6.4 10^3/uL (1.5-6.6); NEUTROPHILS % (AUTO) 74.2 %; PLT - PLATELET COUNT 199 10^3/uL (130-450); RED BLOOD COUNT 5.13 10^6/uL (4.70-6.10); RED CELL DISTRIBUTION WIDTH 12.7 % (12.0-15.0); WHITE BLOOD COUNT 8.7 x10^3/uL (4.8-10.8)
--- NOTE | 2023-07-08 10:14 | XRAY Report ---
PROCEDURE: Chest 1 View X-Ray INDICATIONS: Chest Pain TECHNIQUE: One view of the chest was acquired. COMPARISON: 06/26/2022 FINDINGS: Surgical changes and devices: None. Lungs and pleura: Mild generalized interstitial prominence can be seen. Streaky likely atelectasis can be seen in the right lung base. Mediastinum: Mediastinal contours appear normal. Heart size is at the upper limits of normal. Bones and chest wall: No suspicious bony lesions. Age-appropriate degenerative changes are seen. M ild dextroconvex scoliotic curvature is seen. Overlying soft tissues appear unremarkable. IMPRESSION: Low lung volumes, with likely atelectasis at the right lung base. Mild generalized interstitial prominence can be seen. Please consider mild pulmonary edema. Heart size is at the upper limits of normal for portable technique. Reviewed by: Tai Roberts MD on 07/08/2023 9:13 AM MAYRA Approved by: Tai Roberts MD on 07/08/2023 9:13 AM MAYRA Station ID: [id number]
[2023-07-08] MEDS ORDERED: FUROSEMIDE 20 MG/2 ML VIAL IVP STA (10:17)
[2023-07-08 10:39] LABS: ALBUMIN 4.2 g/dL (3.2-5.5); ALBUMIN/GLOBULIN RATIO 1.6 (1.0-2.2); BILIRUBIN,TOTAL 0.7 mg/dL (0.2-1.0); CALCIUM 9.4 mg/dL (8.5-10.3); CREATININE 1.2 mg/dL (0.6-1.3); POTASSIUM 3.7 mmol/L (3.5-4.5); TOTAL PROTEIN 6.8 g/dL (6.4-8.9)
[2023-07-08 10:46] LABS: TROPONIN I HIGH SENSITIVITY 26.2 ng/L (2.3-19.7)
[2023-07-08] MEDS ORDERED: ONDANSETRON ODT 4 MG TABLET TL PRN (11:41)
[2023-07-08] MEDS ORDERED: ONDANSETRON 4 MG/2 ML VIAL IVP PRN (11:41)
[2023-07-08] MEDS ORDERED: SODIUM CHLORIDE FLUSH 0.9% 10 ML SYRINGE IVP PRN (11:41)
--- NOTE | 2023-07-08 12:01 | HISTORY & PHYSICAL EXAMINATION ---
Chief Complaint - Chief Complaint Chief Complaint: Dyspnea on exertion and orthopnea History of Present Illness - Admitted From Admitted From:: Home - History Obtained From [facility] History obtained from: Dr. Ashley Exam Limitations: None - History of Present Illness HPI Comment/Other: 77-year-old white male who is followed by Dr. Nnamdi Gonzales in our [facility]. Problems usually consist of hypertension, claudication, GERD, hyperlipidemia. He has no previous cardiac history. For the last 2 weeks he has had intermittent chest pressure. It happened at rest or with walking. It did not matter. Then in the last few days he began having shortness of breath especially at night when he tried to lay down. Then the shortness of breath started to happen with exertion. He has been developing some swollen ankles. He recently had his hydrochlorothiazide stopped because it made him lightheaded. This was about 2 months ago. He denies fever, cough, chills. He does have a history of diastolic heart failure. Echocardiogram in 2020 was done in [facility]. Ejection fraction 50 to 55%. Grade 1 diastolic dysfunction. Right ventricle mildly dilated. Right ventricle systolic function normal. Left atrium mildly dilated. No significant valvular heart disease. Could not measure tricuspid jet. Prior to that he has a history of PVCs and some chest discomfort and a myocardial perfusion study had normal sinus rhythm with frequent PVCs. Some ventricular bigeminy. The stress and resting supine images revealed a small to moderate size, mild to moderately decreased perfusion of the inferior wall and inferoapex which improved during prone. However prone images continue to have mildly decreased perfusion. It was nondiagnostic for reversible ischemia. And it was felt to have diaphragmatic attenuation. With this current episode of chest discomfort and shortness of breath, son-in-law drove him to the emergency room and his temperature was 36.7, heart rate 82, respirations 22, blood pressure 165/112. On exam he is alert and oriented with mild deafness. He has an irregularly irregular heart rate. Clear lungs. And 1+ pitting edema that is symmetrical. Telemetry and EKG shows atrial fibrillation which is a new diagnosis for him. Troponin #1 is 26.2. BNP is 614. He has atelectasis at the right lung base. Mild generalized interstitial prominence. Consider pulmonary edema. Heart size upper limits of normal for portable technique. He received 20 mg of Lasix, isosorbide mononitrate 60 mg. This patient status and new presentation was discussed with the ER provider. Because of his diastolic heart failure, I think we will be placing him in observation status to gently diurese him overnight. Rate control will be with metoprolol and I will anticoagulate since is unclear when he went into A-fib. His current complaint is that of a headache. Got worse with the isosorbide. I warned him that Motrin and Aleve or any other nonsteroidal can be used while he is on a DOAC. History - Past Medical History Cardiovascular: reports: Congestive heart failure (Diastolic), Hypertension, High cholesterol, Arrhythmia (PVCs in the past. 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), Colon polyps (2002), Other (Diverticulosis) : reports: Benign prostate hypertrophy, Renal insuffiency (Chronic kidney disease stage II) HEENT: reports: Other (Chronic rhinitis, Epistaxis, cataracts) Psych: reports: None Musculoskeletal: reports: Other (Neck spasms) Derm: reports: Other (Seborrheic dermatitis) MRSA Hx?: No - Past Surgical History General: reports: Colonoscopy (2012, 2018), Other (Inguinal hernia repair1986 with mesh) Ortho: reports: Rotator cuff repair (1997), Spine surgery (Lumbar laminectomy 1986) /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 Dad has Alzheimer's disease. 1 brother of which he is not in contact with. 1 daughter who is completely healthy. No high blood pressure, diabetes, cancer, heart attack Living arrangement: At home Living Situation: Alone Social History Notes: Never smoked. Current non-smoker. Used to smoke a pipe. No history of alcohol abuse. of metastatic colon cancer in early 2021. From [place]. Near [place]. 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 Moved here 5 years ago and lives next to daughter. She is his DPOA. Meds/Allgy - Home Medications Home Medications: Ambulatory Orders Medication Instructions Recorded Confirmed Acetaminophen/Diphenhydramine [Cvs 1 each PO QPM 07/08/23 07/08/23 Acetaminophen Pm Caplet] Aspirin Chewable [St Jone 81 mg PO DAILY 07/08/23 07/08/23 Aspirin] Gabapentin [Neurontin] 400 mg PO BID 07/08/23 07/08/23 Multivitamin [Theragran] 1 each PO DAILY 07/08/23 07/08/23 Omeprazole Magnesium 20 mg PO DAILY 07/08/23 07/08/23 Psyllium Husk [Fiber] 0.52 gm PO DAILY 07/08/23 07/08/23 Rosuvastatin Calcium [Crestor] 10 mg PO QPM 07/08/23 07/08/23 Tamsulosin [Flomax] 0.4 mg PO QPM 07/08/23 07/08/23 lisinopriL [Lisinopril] 40 mg PO QPM 07/08/23 07/08/23 - Allergies Allergies/Adverse Reactions: Allergies Allergy/AdvReac Type Severity Reaction Status Date / Time No Known Drug Allergies Allergy Verified 07/08/23 10:52 Review of Systems - Constitutional Constitutional: denies: Fatigue, Fever, Chills, Malaise, Weakness, Diaphoresis, Night sweats - Eyes Eyes: reports: Vision loss (due to age and cataracts). denies: Amaurosis, Blurred vision - Ears, Nose & Throat Ears, Nose & Throat: reports: Hearing loss, Tinnitus, Postnasal drainage (chronic) - Cardiovascular Cariovascular: reports: Irregular heart rate, Palpitations, Chest pain, Edema, Exertional dyspnea, Decr. exercise tolerance - Respiratory Respiratory: reports: SOB at rest, SOB with exertion. denies: Cough, Sputum production, Wheezing - Gastrointestinal Gastrointestinal: reports: Diarrhea (Off-and-on x years, resulted in a colonoscopy. Alternated with constipation. [place] to have IBS), Other (Occasional sticking of his food but eventually passes). denies: Abdominal pain, Abdominal distention - Genitourinary Genitourinary: reports: Frequency, Nocturia, Other (Incomplete bladder emptying) - Musculoskeletal Musculoskeletal: reports: Stiffness, Other (Hears a grinding sound in his neck when he turns his head [id number]). denies: Muscle pain, Back pain, Muscle aches - Integumentary Integumentary: denies: Rash, Pruritis, Lesions, Dryness - Neurological Neurological: reports: Headache (Pretty much daily. Generalized. MRI of head - June 2016.Has 1 today.), Numbness (feet. really cold sometimes and SAMSON negative), Incoordination (Due to dizziness. Especially with hydrochlorothiazide and doxazosin. Years of dizziness if he moves his head right to left.). denies: General weakness - Psychiatric Psychiatric: reports: Depression (Especially in the winter. It is gotten to where he really hates being here in the winter. He would like to start an antidepressant.), Anxiety, Other (He does not want to be a burden to his daughter. But his daughter let him know that him not sharing things with her and not telling her things is a burden.). denies: Suicidal, Hallucinations, Homicidal - Endocrine Endocrine: reports: Intolerance to cold. denies: Polyuria, Polydypsia, Polyphagia - Hematologic/Lymphatic Hematologic/Lymphatic: denies: Anemia, Bruising, Petechiae Prior Level of Functionality: Independent with activities of daily living. Drives a car. 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 Exam - Vital Signs Reviewed Vital Signs: Yes Vital Signs: Vital Signs x48h Temp Pulse Resp BP Pulse Ox 07/08/23 09:48 36.7 C 82 22 165/112 H 97 - Physical Exam General Appearance: positive: No acute distress, Alert, Other (Tanned elderly gentleman who looks stated age, male pattern baldness, white doran, comfortable. Joking with daughter, joking with me.) Eyes Bilateral: positive: PERRL, EOMI ENT: positive: Pharynx nml, Other (Voice is a little hoarse. He says that is chronic.) Neck: positive: No JVD. negative: Stiff neck Respiratory: positive: No respiratory distress. negative: Wheezes, Rales, Rhonchi Cardiovascular: positive: Irregularly irregular, Bradycardia (Received metoprolol and his pulse is in the 40s). negative: Systolic murmur Peripheral Pulses: positive: 1+ Abdomen: positive: Non-tender, No organomegaly, Nml bowel sounds, No distention Skin: positive: Warm, Dry Extremities: positive: Full ROM, Pedal edema (1+ around ankles) Neurologic/Psychiatric: positive: Oriented x3, CN's nml (2-12), Motor nml Conclusion/Plan - Problem List (1) New onset atrial fibrillation Conclusion/Plan: This is a gentleman who has a history of PVCs and palpitations in the past. 2020 cardiac work-up only revealed mild diastolic heart failure and he did have sinus rhythm at that time. And a diaphragmatic attenuation of nuclear medicine imaging of the inferior wall. Plan: Observation status Serial troponins TSH. No history of thyroid disease. TSH has been normal in his PCP office. D-dimer. If it is elevated he will need a CT pulmonary angiogram. But he has no risk factors for DVT. Homans negative. Does have edema. Eliquis for anticoagulation Metoprolol for rate control Plan for discharge tomorrow if his rate is under control and he is tolerating anticoagulation. He will need an outpatient echocardiogram. triage technician is not available on the weekends. She only arrives Sunday through . Today is Sunday. Follow-up with PCP in the next 1 to 2 weeks. (2) Acute on chronic diastolic heart failure Conclusion/Plan: Already has a previous history of chronic diastolic heart failure. I think the atrial fibrillation has taken away some of his ejection fraction, and he may be having intermittent tachycardia. He recently had hydrochlorothiazide discontinued. This may have been temporarily compensating him. He has already received Lasix 20 mg IV push in the ER. I will assess his response to this over the course of today before giving him another dose. In diastolic heart failure, the treatment is diuretics. He may have to go back on hydrochlorothiazide. (3) Elevated troponin Conclusion/Plan: Most likely due to demand ischemia. We will repeat every 6 hours for 2 more levels. (4) Hypertension Conclusion/Plan: Blood pressure is 165/112. Has not been repeated in the emergency room as of 12:41 PM. I believe they are significantly short staffed. We will recheck his blood pressure when he gets to [facility]. Home medications are lisinopril 40 mg daily, I will resume that. We will also reassess his blood pressure in the face of adding metoprolol to the lisinopril. Qualifiers: Hypertension type: primary hypertension Qualified Code(s): I10 - Essential (primary) hypertension (5) BPH associated with nocturia Conclusion/Plan: We will make sure he stays on his Flomax. (6) GERD (gastroesophageal reflux disease) Conclusion/Plan: He has a history of stricture due to reflux. Does not describe dilation. He is on a proton pump inhibitor on a regular basis. I have advised him that he can no longer use any type of nonsteroidal therapy for the future. He will have reflux and be on a DOAC. As such I would like to reduce his risk of esophagitis or ulcers. Qualifiers: Esophagitis presence: esophagitis presence not specified Qualified Code(s): K21.9 - Gastro-esophageal reflux disease without esophagitis (7) Do not resuscitate status Conclusion/Plan: He has a POLST form at home. Was getting around to filling it out and having Dr. Gonzales signed it. He and his daughter asked if I could fill 1 out here and they can take at home already signed by . I was fine with that. He wants to be a DO NOT RESUSCITATE if he does not have a pulse or pressure. But he still wants interventions such as pneumonia, surgeries, blood transfusions when needed. If we have treated his problems and is not getting better and it looks like he is going to , let him (8) Seasonal affective disorder Conclusion/Plan: Ever since he has moved here from [place], he finds the [place] very depressing. He gets withdrawn, cranky. Anxious and he feels cooped in. He is talked about this with Dr. Gonzales and wonders if he could start some treatment. He and Dr. Gonzales were going to talk about this. I gave him information on depressive disorder. He can read about it and tell me which the symptoms applied to him. And I also asked him to fill out a PHQ-9. I told him that after he is done these questionnaires, we can talk about it more. If he is wanting therapy I will most likely start with an SSRI. But I am also going to be recommending cognitive behavioral therapy. (9) Headache Conclusion/Plan: Please happen on an almost daily basis. Generalized. No aura or visual parks es. He drinks 10 cups of coffee a day. Plan: Probable tension headaches. Cut back on the caffeine I warned him that he cannot take any nonsteroidal therapy on a DOAC. He will only be able to take Tylenol. Consider massage for the head. Do it once or twice a month. He rolled his eyes and his daughter laughed and said he is not can to do it. I told him what could it hurt. It is only once or twice. See if it works. If it does not he does not have to keep on doing it. Qualifiers: Headache type: tension-type - Lab Results Lab results reviewed: Yes Fish Bones: 07/08/23 10:03 07/08/23 10:03 - Diagnostic Imaging Results Diagnostic Imaging Results: positive: Final report reviewed - EKG Results EKG Interpreted Independently: No Core Measures - Anticipated LOS I expect patient to be DC'd or transferred within 96 hours.: Yes - DVT/VTE - Prophylaxis VTE/DVT Prophylaxis med ordered at admit?: Yes
[2023-07-08] MEDS: METOPROLOL TARTRATE 25 MG TABLET PO SCH ×2 (13:18→20:11)
[2023-07-08] MEDS: APIXABAN 5 MG TABLET PO SCH ×2 (13:19→20:08)
[2023-07-08] MEDS: ACETAMINOPHEN 325 MG TABLET PO PRN ×3 (14:12→23:57)
--- NOTE | 2023-07-08 15:35 | PHARMACY PROGRESS NOTE ---
- Best Possible Medication History Admit Date and Time: 07/08/23 1141 Processed by: Pharmacy Medication History completed: Yes Secondary Source(s): Physician records, Pharmacy records, Insurance records As the person ultimately responsible for medication therapy, providers are able to order a medication from an existing home medication list in [facility] via the "Reconcile Routine" prior to Confirmation of that medication by wind farm support specialist. Such practice is discouraged except when the physician, in their clinical judgment, deems that a medical need exists for a medication without regard to previous use.
[2023-07-08] MEDS: oxyCODONE 5 MG TABLET PO PRN ×2 (16:43→23:03)
[2023-07-08] MEDS: SODIUM CHLORIDE FLUSH 0.9% 10 ML SYRINGE IVP SCH ×2 (20:10→23:57)
[2023-07-09] MEDS: METOPROLOL TARTRATE 25 MG TABLET PO SCH (08:39)
[2023-07-09] MEDS: APIXABAN 5 MG TABLET PO SCH (08:39)
[2023-07-09] MEDS ORDERED: METOPROLOL TARTRATE 25 MG TABLET PO SCH (08:40)
[2023-07-09] MEDS: SODIUM CHLORIDE FLUSH 0.9% 10 ML SYRINGE IVP SCH (08:42)
[2023-07-09] MEDS: ACETAMINOPHEN 325 MG TABLET PO PRN (08:52)
[2023-07-09 09:43] VITALS: BP 169/70; O2SAT 97
--- NOTE | 2023-07-09 11:13 | Discharge Plan ---
Discharge Plan Problem Reviewed?: Yes Disposition: Home, Self Care Condition: Fair Prescriptions: Apixaban [Eliquis] 5 mg PO BID #60 tab Diet: Regular Activity Restrictions: Activity as Tolerated Shower Restrictions: No Driving Restrictions: No Health Concerns: You presented to the hospital with shortness of breath every time he lay down, p rogressive shortness of breath with exertion. In the emergency room we found you to have new onset atrial fibrillation where your heart beats irregularly irregular. The pacemaker in your heart is not working very well. So sometimes your heart rate is fast, and sometimes your heart rate is slow into the 30s. The main risk with atrial fibrillation is stroke because small clots can form in your heart that are then pumped out. They leave your heart and give you a stroke. Plan of Treatment: 1. Please see Dr. Gonzales in follow-up. Dr. Gonzales needs to order the [facility] things. + An echocardiogram. You had 1 2 years ago and it was normal. But a repeat one needs to be done to evaluate the chamber size of your heart. + A repeat stress test. + An event monitor. While your heartbeat is in atrial fibrillation, it is not running very fast. And if I give you a medicine to slow it down, your heart rate gets too slow. At night when you go to sleep your heart rate is in the 30s. As such I would like to have your heart monitored for at least 30 days to see how fast and how slow your heart is. This is because you need to be evaluated for possible pacemaker. 2. Because of your shortness of breath, you may have diastolic heart failure. I would like you to go on Lasix 20 mg a day. Because Lasix will make you urinate potassium into your urine, I will also send you home on a low-dose of potassium. With atrial fibrillation we usually give you medicine to slow down your heart rate. However, your heart rate seems to be in the 80s. Which is controlled. And you drop into the 30s at night when you are asleep. This may explain why you are short of breath. So I am holding off on giving you the rate lowering drug and only giving you the Lasix. 3. Because the atrial fibrillation will increase your risk of stroke, I am sending you home on a blood thinner. You are worried about the cost of the blood thinner. I did prescribe Eliquis which is covered by your insurance. If, however, you find that the cost of this is too much please asked Dr. Gonzales if you can be started on Coumadin which is a generic, much cheaper drug Care Goals: To have your shortness of breath go away Assessment: Patient is alert, oriented to person place time and situation and promises to follow through. Last night, on admission, his daughter was at the bedside and heard much of this plan. No Smoking: If you smoke, Please STOP! Call for help. Follow-up with: Nnamdi Gonzales MD [Primary Care Provider] -
--- NOTE | 2023-07-09 11:18 | DISCHARGE SUMMARY ---
"Discharge Summary Admit Date: 07/08/23 Discharge Date: 07/09/23 Discharging Provider: Marilou Thomson MD Primary Care Provider: Nnamdi Gonzales MD Condition at Discharge: Fair Discharge Disposition: 01 Home, Self Care - DIAGNOSES Discharge Diagnoses with Status of Each Condition: 1. New onset atrial fibrillation 2. Acute on chronic systolic heart failure 3. Elevated troponin 4. Hypertension 5. BPH associated with nocturia 6. GERD 7. DO NOT RESUSCITATE status 8. Seasonal affective disorder - HPI History of Present Illness: 77-year-old white male who is followed by Dr. Nnamdi Gonzales in our [facility] clinics. Problems usually consist of hypertension, claudication, GERD, hyperlipidemia. He has no previous cardiac history. For the last 2 weeks he has had intermittent chest pressure. It happened at rest or with walking. It did not matter. Then in the last few days he began having shortness of breath especially at night when he tried to lay down. Then the shortness of breath started to happen with exertion. He has been developing some swollen ankles. He recently had his hydrochlorothiazide stopped because it made him lightheaded. This was about 2 months ago. He denies fever, cough, chills. He does have a history of diastolic heart failure. Echocardiogram in 2020 was done in [facility]. Ejection fraction 50 to 55%. Grade 1 diastolic dysfunction. Right ventricle mildly dilated. Right ventricle systolic function normal. Left atrium mildly dilated. No significant valvular heart disease. Could not measure tricuspid jet. Prior to that he has a history of PVCs and some chest discomfort and a myocardial perfusion study had normal sinus rhythm with frequent PVCs. Some ventricular bigeminy. The stress and resting supine images revealed a small to moderate size, mild to moderately decreased perfusion of the inferior wall and inferoapex which improved during prone. However prone images continue to have mildly decreased perfusion. It was nondiagnostic for reversible ischemia. And it was felt to have diaphragmatic attenuation. With this current episode of chest discomfort and shortness of breath, son-in-law drove him to the emergency room and his temperature was 36.7, heart r ate 82, respirations 22, blood pressure 165/112. On exam he is alert and oriented with mild deafness. He has an irregularly irregular heart rate. Clear lungs. And 1+ pitting edema that is symmetrical. Telemetry and EKG shows atrial fibrillation which is a new diagnosis for him. Troponin #1 is 26.2. BNP is 614. He has atelectasis at the right lung base. Mild generalized interstitial prominence. Consider pulmonary edema. Heart size upper limits of normal for portable technique. He received 20 mg of Lasix, isosorbide mononitrate 60 mg. This patient status and new presentation was discussed with the ER provider. Because of his diastolic heart failure, I think we will be placing him in observation status to gently diurese him overnight. Rate control will be with metoprolol and I will anticoagulate since is unclear when he went into A-fib. His current complaint is that of a headache. Got worse with the isosorbide. I warned him that Motrin and Aleve or any other nonsteroidal can be used while he is on a DOAC. - Past Medical History Cardiovascular: reports: Congestive heart failure (Diastolic), Hypertension, High cholesterol, Arrhythmia (PVCs in the past. 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), Colon polyps (2002), Other (Diverticulosis) : reports: Benign prostate hypertrophy, Renal insuffiency (Chronic kidney disease stage II) HEENT: reports: Other (Chronic rhinitis, Epistaxis, cataracts) Psych: reports: None Musculoskeletal: reports: Other (Neck spasms) Derm: reports: Other (Seborrheic dermatitis) MRSA Hx?: No - Past Surgical History General: reports: Colonoscopy (2012, 2018), Other (Inguinal hernia repair1986 with mesh) Ortho: reports: Rotator cuff repair (1997), Spine surgery (Lumbar laminectomy 1986) /AUTO CLAIM REPRESENTATIVE: reports: Other (Vasectomy) - CONSULTS | PROCEDURES Procedures: Chest x-ray with low lung volumes, with likely atelectasis at the right lung base. Mild generalized interstitial prominence and possible pulmonary edema. Heart size upper level of normal for portable technique. - HOSPITAL COURSE Hospital Course: During his overnight stay, he really only needed 1 dose of metoprolol. The rest of his doses were held because of bradycardia. In the middle of the night he would dip into the 30s. It was during those times that he would feel that he was more short of breath with orthopnea. Serial troponins were never really el evated. They were a positive set of troponins but all stayed in the same range which I think is more demand ischemia. As such he was not discharged on a rate control agent and I am asking that he get an event monitor to verify whether this patient has sick sinus syndrome. He will also need a repeat echocardiogram. Our donor services technician is not available until July 10. As such he needs one in the outpatient setting with possibly new stress test.If this work- up is negative, possible obstructive sleep apnea evaluation with a sleep study might help. Because of the manifestations of diastolic heart failure I have started him on Lasix 20 mg daily with potassium 10 mEq daily. The medication may be temporary until he is seen by his primary care provider to be evaluated. He has benign prostatic hypertrophy associated with nocturia. I explained to him that Benadryl and Tylenol PM may be problematic for a gentleman his age with a large prostate. He has not commenced. He did fill out a questionnaire with regards to depression during the season. Questionnaire was 1.4 feeling down depressed or hopeless for several days, tired and having little energy for several days, trouble concentrating on things for several days. But those were the only positive checked off nguyễn in the was 3.6 on the PHQ9. He says that these things have not made anything difficult at home. When we went over the DSM-V diagnostic criteria for major depressive episode none of them applied to him. He said the only things that bother him was a seasonal pattern of feeling gloomy. He hates having to be inside all day long. He has daily headache was present during the hospitalization. Unfortunately he is not can to be able to take nonsteroidals anymore because of a DOAC. He can only take Tylenol. I told him that he may want to be considered for Fioricet. He can take Fiorinal because it has aspirin in it. I told him he also may want to cut back on 10 cups of coffee a day. I have asked him to please see his primary care provider in follow-up. Discharge exam had a temperature of 36.7. Heart rate is 74. Blood pressure 169/70. Respirations 20. 97% on room air. He 6 foot 7 inches tall, 112 kg. Tall lean gentleman, tanned. Well-groomed, well-nourished. Neck is supple. No JVD. Lungs are clear to auscultation and percussion. PMI is normally placed and I am hearing a regular rate and rhythm. Not irregular. No murmur. And abdomen is soft and nontender. Extremities without any edema and he gets up out of a chair, walks up to give me a hug, and walks around his room without any ataxia, or need for durable medical equipment. This document was made in part using voice recognition software. While efforts are made to proofread this document, sound alike and grammatical errors may occur. - ALLERGIES Allergies/Adverse Reactions: Allergies Allergy/AdvReac Type Severity Reaction Status Date / Time No Known Drug Allergies Allergy Verified 07/08/23 10:52 - MEDICATIONS Home Medications: Ambulatory Orders Medication Instructions Recorded Confirmed Acetaminophen/Diphenhydramine [Cvs 1 each PO QPM 07/08/23 07/08/23 Acetaminophen Pm Caplet] Gabapentin [Neurontin] 400 mg PO BID 07/08/23 07/08/23 Multivitamin [Theragran] 1 each PO DAILY 07/08/23 07/08/23 Omeprazole Magnesium 20 mg PO DAILY 07/08/23 07/08/23 Psyllium Husk [Fiber] 0.52 gm PO DAILY 07/08/23 07/08/23 Rosuvastatin Calcium [Crestor] 10 mg PO QPM 07/08/23 07/08/23 Tamsulosin [Flomax] 0.4 mg PO QPM 07/08/23 07/08/23 lisinopriL [Lisinopril] 40 mg PO QPM 07/08/23 07/08/23 Apixaban [Eliquis] 5 mg PO BID #60 tab 07/09/23 Furosemide [Lasix] 20 mg PO DAILY #30 tablet 07/09/23 Potassium Chloride [Micro-K] 10 meq PO 0800 #30 07/09/23 - LABS Result Diagrams: 07/08/23 10:03 07/08/23 10:03"
== END 2023-07-09 11:59 | disposition home or self-care (01) ==
LOC: ED 09:37 → MS2 11:41
PROVIDERS: ADMIT Specialist; ATTEND Specialist
DX: I13.0 Hypertensive heart and chronic kidney disease with heart failure and stage 1 through stage 4 chronic kidney disease, or unspecified chronic kidney disease (principal); I50.33 Acute on chronic diastolic (congestive) heart failure; I48.91 Unspecified atrial fibrillation; N18.2 Chronic kidney disease, stage 2 (mild); F33.9 Major depressive disorder, recurrent, unspecified; R51.9 Headache, unspecified; E78.5 Hyperlipidemia, unspecified; K21.9 Gastro-esophageal reflux disease without esophagitis; R79.89 Other specified abnormal findings of blood chemistry; N40.1 Benign prostatic hyperplasia with lower urinary tract symptoms; R35.1 Nocturia; Z66 Do not resuscitate; G62.9 Polyneuropathy, unspecified; G25.0 Essential tremor
CPT/HCPCS: 36415; 71045; 80053; 83690; 83880; 84484; 85025; 85379; 93005; 96374; 99285; A9270; G0378

== ENCOUNTER 2023-08-30 10:54 | Outpatient (CLI) | payer MEDICARE, BC ==
--- NOTE | 2023-08-30 11:51 | Sleep Patient Instructions ---
Sleep Center Visit Summary - Patient Visit Information Reason for Visit: Initial consult for evaluation of sleep disordered breathing and other sleep issues. - Patient Instructions Instructions Attached: Sleep Study, Sleep Study Home Monitor Additional Instructions: You will be completing a sleep study, either an in-lab polysomnography (PSG) or home sleep study (HST). You will follow-up in the sleep care office after the sleep study is completed to hear the results and talk about therapy, if needed. You will be called by our office staff to schedule this appointment, but you may contact us with any questions. - Clinic Information Contact: [facility] [address] [place] [id number] [email or web address] T: [phone]
--- NOTE | 2023-08-30 12:06 | SLEEP CARE CONSULTATION ---
Information from patient questionnaire entered by Marianna Weems. I have reviewed and concur with the information entered by Marianna Weems. This document represents the service I personally performed and the decisions made by me, Sherry Kline ARNP. History of Present Illness Service Date and Time: 08/30/2023 1054 Reason for Visit: New patient Chief Complaint: reports: Other (DOCTORS REQUEST I HAVE NONE OF THE ABOVE SYMPTOMS) Usual bedtime: 1030PM Time it takes to fall asleep: 10-20MIN Snores at night: No Observed to quit breathing while asleep: No Sleeps alone due to snoring: No Number of times waking at night: 1 Reasons for waking at night: reports: Bathroom Toss, Turn, or Twitch while sleeping: No Recalls having dreams: No Usually gets out of bed at: 6AM Feels refreshed in the morning: Yes Morning headache: No Sleepy or fatigued during the day: No Ever fallen asleep while driving: No Takes day naps: Yes Dreams during day naps: No Prior sleep studies: No Additional HPI information: I had the pleasure of seeing PAVAN RODRIGUEZ today regarding the possibility of him having a sleep disorder. His says he is here on the request of his doctor and he does not feel he has symptoms for sleep disordered breathing. He has a history of atrial fibrillation and hypertension. He does not think he snores and his never complained. He denies feeling unrefreshed in the morning. He takes naps about 4 days a week but does not usually feel overly tired or have reduce energy overall. He states he does not sleep well when he is not sleeping in his own bed. He says he goes to sleep within 10-20 minutes and only gets up once at night for the bathroom. He denies gasping for air or choking waking him up. He states he has lost about 15 lbs in last couple years. 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 Patient is and lives in [place]. Have you smoked in the past 12 months: No Alcohol use: Yes Alcohol amount and frequency: 1 drink a week Caffeine use: Yes Caffeine amount and frequency: 1-2 CUPS DAILY Family History Family history of sleep disordered breathing: No Allergies and Home Medications Known drug allergies: No Drug allergies reviewed: Yes Home medication list reviewed: Yes Allergy and home medication list: Allergies No Known Drug Allergies Allergy (Verified 08/29/23 16:17) Medications: Lisinopril 40 mg at bedtime Gabapentin 400 mg x 3 daily Rosuvastatin 10 mg Tamsulosin 0.4 mg Eliquis 5 mg BID Furosemide 20 mg Potassium 10 meq ER Capsules Omeprazole 20 mg Fiber tablet Vitamin D3 Vitamin B12 Review of Systems Weight loss over past 5 years: 15 Cardiovascular: reports: high blood pressure, irregular heart rate or pulse Gastrointestinal: denies: heartburn Urinary: reports: frequency Neurological: denies: headaches Psychiatric: denies: anxiety, depression Ear/Nose/Throat: reports: other (DEVEATED SEPTUM). denies: tonsillectomy Musculoskeletal: reports: joint pain (STIFFNESS) Immunologic: reports: sneezing Physical Exam Vital signs obtained and entered by: SHERRY ELMORE Blood Pressure: 123/60 Cuff size: wrist (right) Heart Rate: 56 O2 Saturation: 97 Height: 6 ft 7 in Weight: 240 lb 12.8 oz Body Mass Index: 27.1 BMI Classification: Overweight Neck circumference: 16 (inches) Septum: deviated left Mouth and throat: narrow oropharynx Soft palate: long Hard palate: normal Uvula: normal Uvula visualization: 25% Mallampati Class III Tongue: normal in size Neck: normal w/o lymphadenopathy or thyromegaly Heart: irregular rhythm Lungs: clear bilaterally Impression and Plan 1. Suspected Obstructive Sleep Apnea-Hypopnea Syndrome, as suggested by a history of atrial fibrillation and hypertension. Narrow oropharynx and obesity are common predisposing factors for obstructive sleep apnea-hypopnea syndrome. I recommend proceeding to polysomnography to confirm the diagnosis and to assess severity. If the patient has significant sleep disordered breathing, a manual CPAP titration study will also be performed to find the optimal treatment pressure. I informed the patient of what the sleep studies involve and after some discussion, obtained agreement to proceed. The pathophysiology of obstructive sleep apnea-hypopnea syndrome was discussed with the patient and health risks of cardiovascular and cerebrovascular disease if not treated. Ris ks of drowsy driving discussed in detail and patient advised to avoid long distance driving and to machine puller and laster at the first sign of drowsiness. Patient agreed to plan. * Schedule polysomnography. * Avoid long distance driving or driving when feeling sleepy. * Avoid alcohol, sedative and muscle relaxant around bedtime. * Attempt to lose weight. * Review instructions provided by trained office staff on how to prepare for the sleep study. * Return for follow-up after sleep study completed. Counseling Topics: Weight loss health impact Plan: PSG Visit Type: In Office Time Spent with Patient (minutes): 41 Provider Statement: I spent 100% of the Face to Face Visit with the patient with greater than 50% spent counseling the patient and coordination of care.
[2023-08-30 12:12] VITALS: BP 123/60; O2SAT 97
== END 2023-08-30 10:55 | disposition home or self-care (01) ==
LOC: SC 10:54
PROVIDERS: ATTEND Nurse Practitioner Family
DX: I48.91 Unspecified atrial fibrillation (principal); I10 Essential (primary) hypertension; E66.3 Overweight; Z68.27 Body mass index [BMI] 27.0-27.9, adult
CPT/HCPCS: 99203; G0463; 99212

== ENCOUNTER 2023-09-25 20:34 | Outpatient (CLI) | payer MEDICARE, BC | END 2023-09-25 20:35 | disposition home or self-care (01) | LOC: SC 20:34 | PROVIDERS: ATTEND Nurse Practitioner Family | DX: G47.33 Obstructive sleep apnea (adult) (pediatric) (principal); G47.61 Periodic limb movement disorder; E66.3 Overweight; Z68.27 Body mass index [BMI] 27.0-27.9, adult | CPT/HCPCS: 95810 ==

== ENCOUNTER 2023-09-28 09:56 | Outpatient (CLI) | payer MEDICARE, BC ==
[2023-09-28 12:03] LABS: BASOPHILS # (AUTO) 0.1 10^3/uL (0.0-0.1); BASOPHILS % (AUTO) 0.8 %; EOSINOPHILS # (AUTO) 0.1 10^3/uL (0.0-0.7); EOSINOPHILS % (AUTO) 1.8 %; HCT - HEMATOCRIT 47.3 % (42.0-52.0); LYMPHOCYTES # (AUTO) 1.7 10^3/uL (1.5-3.5); LYMPHOCYTES % (AUTO) 25.2 %; MEAN CORPUSCULAR HEMOGLOBIN 27.3 pg (27.0-31.0); MEAN CORPUSCULAR HGB CONC 31.7 g/dL (32.0-36.0); MONOCYTES # (AUTO) 0.9 10^3/uL (0.0-1.0); MONOCYTES % (AUTO) 13.1 %; NEUTROPHILS # (AUTO) 3.8 10^3/uL (1.5-6.6); NEUTROPHILS % (AUTO) 58.8 %; PLT - PLATELET COUNT 226 10^3/uL (130-450); RED CELL DISTRIBUTION WIDTH 14.2 % (12.0-15.0); WHITE BLOOD COUNT 6.5 x10^3/uL (4.8-10.8)
[2023-09-28 12:30] LABS: ALBUMIN 4.3 g/dL (3.2-5.5); ALBUMIN/GLOBULIN RATIO 1.6 (1.0-2.2); BILIRUBIN,TOTAL 0.6 mg/dL (0.2-1.0); CALCIUM 9.7 mg/dL (8.5-10.3); CREATININE 1.2 mg/dL (0.6-1.3); POTASSIUM 3.9 mmol/L (3.5-4.5)
[2023-09-28 12:36] LABS: INR 1.2 (0.8-1.2); PT - PROTHROMBIN TIME 13.1 secs (9.9-12.6)
[2023-09-28 12:38] LABS: ESTIMATED AVERAGE GLUCOSE 123 mg/dL (70-100); HEMOGLOBIN A1c% 5.9 % (4.27-6.07)
[2023-09-28 16:53] LABS: THYROID STIMULATING HORMONE 1.06 uIU/mL (0.34-5.60)
[2023-09-28 17:03] LABS: CHOL/HDL RATIO 3.4 (<5.0); CHOLESTEROL 134 mg/dL; HDL CHOLESTEROL 40 mg/dL; LDL CHOLESTEROL,CALCULATED 65 mg/dL; LDL/HDL RATIO 1.6 (<3.6); TRIGLYCERIDES 143 mg/dL (48-352); VLDL CHOLESTEROL 29 mg/dL
== END 2023-09-28 09:57 | disposition home or self-care (01) ==
LOC: LAB.N 09:56
PROVIDERS: ATTEND Internal Medicine Cardiovascular Disease
DX: I48.0 Paroxysmal atrial fibrillation (principal); I50.40 Unspecified combined systolic (congestive) and diastolic (congestive) heart failure; R73.9 Hyperglycemia, unspecified; E78.5 Hyperlipidemia, unspecified; E55.9 Vitamin D deficiency, unspecified
CPT/HCPCS: 36415; 80048; 80053; 80061; 82306; 83036; 83721; 84443; 85025; 85610

== ENCOUNTER 2023-10-03 13:19 | Outpatient (CLI) | payer MEDICARE, BC ==
--- NOTE | 2023-10-03 13:49 | Sleep Patient Instructions ---
Sleep Center Visit Summary - Patient Visit Information Reason for Visit: Sleep study follow-up - Patient Instructions Instructions Attached: CPAP Additional Instructions: You are being started on CPAP therapy with pressure setting at 4-15 cmH2O. You will need to call the sleep care office to set up your follow up once you have your APAP machine and we will schedule a visit to check compliance and response to therapy at that time. You may call the office with any concerns about pressure feeling too low or too much for adjustment, if needed. You should contact DME supplier for any questions or concerns about mask or equipment. Please call office to schedule a follow up appointment in the sleep care office one month after obtaining new device. - Clinic Information Contact: [facility] [address] [place] [address] [email or web address] T: [phone]
--- NOTE | 2023-10-03 13:51 | SLEEP CARE CONSULTATION ---
Information from patient questionnaire entered by Marianna Weems. I have reviewed and concur with the information entered by Marianna Weems. This document represents the service I personally performed and the decisions made by me, Sherry Kline ARNP. History of Present Illness Service Date and Time: 10/03/2023 1319 Initial [place] Sleepiness Scale score: 4 (08/10/23) Current [place] Sleepiness Scale score: 7 (10/03/23) Additional HPI information: PAVAN RODRIGUEZ returns for follow up and results of the recently performed polysomnography. The sleep study showed mild obstructive sleep apnea with an average AHI of 7 and liliana oxygen saturation of 84%. He has severe PLMs not contributing for sleep fragmentation. I explained the pathophysiology behind obstructive sleep apnea. We then spent quite a bit of time discussing different treatment options. For mild obstructive sleep apnea, surgery and oral appliance are alternatives to nasal CPAP therapy but in moderate or severe cases, nasal CPAP is the most effective and reliable treatment. Because apnea is primarily in supine position, then positional management therapy could be effective. Methods discussed such as positioning with pillows, using a T-shirt with tennis balls in the back or commercial products that have a pillow format on back to prevent supine sleep. I reviewed the impact of weight changes on sleep apnea and strongly recommended losing weight. After some discussion, the patient opted to go with the nasal CPAP therapy. Nasal autoCPAP set at 4-15 cmH20 will be ordered with rationale explained. A manual titration study will be ordered if unable to find optimal pressure with office adjustments. I explained how CPAP machine works and what to expect when using the machine. Using CPAP every night in order to get used to it was emphasized. Patient advised to put CPAP mask on before getting into bed so as not to fall asleep without CPAP. To assist acclimation to CPAP use, it could also be used for a short time during day while reading or watching TV. The patient was instructed to call the CPAP supplier to discuss any mechanical problem that may occur. If the mask given is uncomfortable or is difficult to keep on through the night even with adjustment, contact the CPAP supplier as many will replace with another mask style if notified before 30 days. If snoring or perceives is not getting enough air or too much air from the machine, notify this office. Patient counseled not drink alcohol less than 4 hours before bedtime as it can increase snoring and apnea. Patient was cautioned about risks of drowsy driving until sleepiness symptoms resolve. Patient denies drowsy driving. Sleep Study - Results Type of Sleep Study: Polysomnography (COMPLETED 09/25/23) Prior sleep studies: No Polysomnography/Home Sleep Study results: IMPRESSION: The quality of the study is good. 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 The sleep architecture was abnormal for sleep fragmentation and lack of slow wave sleep (N3). Respiratory monitoring showed mild obstructive sleep apneahypopnea (AHI = 7.0) associated with frequent arousals, oxyhemoglobin desaturation and mild hypoxia (liliana oxygen saturation of 84%). The respiratory events occurred almost exclusively during supine sleep (supine AHI = 22.4; non-supine = 0.37). No audible snore. There was severe periodic leg movement of sleep, not contributing to the sleep fragmentation. Cardiac rhythm was sinus rhythm frequent premature ventricular contractions, occasionally in couplets and bigeminy. No abnormal behavior (parasomnia) observed during the night. Allergies and Home Medications Known drug allergies: No Drug allergies reviewed: Yes Home medication list reviewed: Yes (no changes) Allergy and home medication list: Allergies No Known Drug Allergies Allergy (Verified 10/01/23 09:05) Review of Systems Review of systems same as previous: Yes (NO CHANGE) Physical Exam Vital signs obtained and entered by: MARIANNA Whipple MA Blood Pressure: 143/61 (LEFT ARM) Cuff size: regular Heart Rate: 54 O2 Saturation: 100 Height: 6 ft 7 in Weight: 239 lb 6.4 oz Body Mass Index: 26.9 BMI Classification: Overweight Impression and Plan 1. Obstructive Sleep Apnea-Hypopnea Syndrome, mild, with lowest oxygen saturation of 84%. He has moderate obstructive sleep apnea when sleeping supine. Obviously this is the cause of the patients symptoms of unrefreshed sleep, and excessive daytime sleepiness. Positive pressure therapy could benefit hypertension and atrial fibrillation. As mentioned above, the patient will be started on nasal autoCPAP therapy with pressure set at 4-15 cmH2O. A manual titration study will be completed if unable to find optimal treatment pressure with office adjustments. Compliance guidelines also reviewed. A copy of compli ance guidelines will be given for reference at check out. Because the apnea is more severe supine, I instructed to avoid sleeping supine using pillow positioning until able to start CPAP use. 2. Hypoxemia, mild, with a liliana oxygen saturation of 84% and 1.6 minutes spent under 90%. The baseline oxygen saturation was normal with an average oxygen saturation of 94%. 3. Periodic limb movement, severe, that did not fragment patients sleep. Periodic limb movement of sleep (PLMS) is characterized by episodes of repetitive limb movements that occur during sleep and usually involve the lower limbs. The etiology is unknown. Sleep hygiene methods can also improve sleep as well as lifestyle changes such as regular exercise. Patient was advised that no treatment is needed at this time. If symptoms increase, then further evaluation is indicated. 4. Overweight, unspecified. Currently patients BMI is 26.9. Obesity increases the risk of apnea, CPAP pressure requirements and overall health risks especially cardiovascular and diabetes. Thus patient is advised to lose weight. * Nasal auto CPAP therapy, pressure at 4-15 cm H2O. * Attempt to lose weight. * Avoid alcohol consumption near bedtime. * Avoid supine sleep until using CPAP. * The patient is again cautioned about driving until sleepiness completely resolves. * Return one month after CPAP obtained. I will assess response to therapy and compliance at that time. Counseling Topics: Sleeping position, Weight loss health impact Visit Type: In Office Time Spent with Patient (minutes): 20 Provider Statement: I spent 100% of the Face to Face Visit with the patient with greater than 50% spent counseling the patient and coordination of care.
[2023-10-03 14:00] VITALS: BP 143/61; O2SAT 100
== END 2023-10-03 13:20 | disposition home or self-care (01) ==
LOC: SC 13:19
PROVIDERS: ATTEND Nurse Practitioner Family
DX: G47.33 Obstructive sleep apnea (adult) (pediatric) (principal); R09.02 Hypoxemia; G47.61 Periodic limb movement disorder; E66.3 Overweight; Z68.26 Body mass index [BMI] 26.0-26.9, adult
CPT/HCPCS: 99213; G0463; 99212

== ENCOUNTER 2023-12-27 20:29 | Outpatient (CLI) | payer MEDICARE, BC | END 2023-12-27 20:30 | disposition home or self-care (01) | LOC: SC 20:29 | PROVIDERS: ATTEND Nurse Practitioner Family | DX: G47.33 Obstructive sleep apnea (adult) (pediatric) (principal); G47.61 Periodic limb movement disorder; I49.9 Cardiac arrhythmia, unspecified; I10 Essential (primary) hypertension | CPT/HCPCS: 95811 ==

== ENCOUNTER 2024-01-10 11:38 | Outpatient (CLI) | payer MEDICARE, BC | END 2024-01-10 11:39 | disposition home or self-care (01) | LOC: DI 11:38 | PROVIDERS: ATTEND Internal Medicine Cardiovascular Disease | DX: I49.3 Ventricular premature depolarization (principal); I42.1 Obstructive hypertrophic cardiomyopathy; I77.810 Thoracic aortic ectasia | CPT/HCPCS: 93307 ==

== ENCOUNTER 2024-01-11 13:47 | Outpatient (CLI) | payer MEDICARE, BC ==
--- NOTE | 2024-01-11 14:26 | Sleep Patient Instructions ---
Sleep Center Visit Summary - Patient Visit Information Reason for Visit: First compliance follow-up - Patient Instructions Additional Instructions: You were here for follow up of CPAP therapy. You will be continued on CPAP therapy with pressure at 6-10 cmH2O. You should follow up with sleep care in 1-2 months. You may contact us sooner for any questions or concerns. - Clinic Information Contact: [facility] [address] [place] [address] [email or web address] T: [phone]
--- NOTE | 2024-01-11 14:34 | SLEEP CARE CONSULTATION ---
Information from patient questionnaire entered by Marianna Weems. I have reviewed and concur with the information entered by Marianna Weems. This document represents the service I personally performed and the decisions made by , Sherry Kline ARNP. History of Present Illness Service Date and Time: 01/11/2024 1347 Previous diagnosis: Mild, Obstructive Sleep Apnea-Hypopnea Syndrome AHI: 7 (09/25/2023) Reason for follow up: first compliance Equipment type: CPAP (RESMED Airsense 11, s/u 09/2023) Equipment obtained from: Other ([facility]) Mask style: Full face Mask brand: Respironics (Dreamwear, large cushion) Backup mask available: Yes (other mask) Last cushion change: 2.5 weeks Prior sleep studies: No Type of Sleep Study: Polysomnography (COMPLETED 09/25/23) HPI additional information: PAVAN RODRIGUEZ was diagnosed to have mild, AHI 7, obstructive sleep apnea-hypopnea syndrome and returned today for CPAP therapy first compliance follow-up. Sleep Study - Results Type of Sleep Study: Polysomnography (COMPLETED 09/25/23) Prior sleep studies: No CPAP Compliance Data - Data Reviewed with Patient Average duration of nightly device use: 6 hrs 1 min Compliance rate %: 70 (11/20/23-12/19/23) Current pressure setting (cmH2O): 5-7 (median 5.2, avg 6.8, max 7.6) Average residual AHI: 5.6 Central apnea: 0.5 Obstructive apnea: 0.1 Hypopnea: 2.6 Average large leak: 40.5 L/min Compliance data discussion: His pressure was changed to 6-10 cmH2O on 12/31/2023. Subjective Missed days of use due to: reports: mask issues Patient concerns: reports: mask discomfort, air blowing in eyes, condensation in mask/hose, nasal congestion, dry mouth, nose, throat. denies: aerophagia, mask leak noise, epistaxis Observed to snore while using device: No Current pressure setting perceived as: comfortable On therapy, patient: reports: sleeping better (more comfortable going to sleep, goes to sleep easier and quicker), awakening more refreshed, being more awake and alert during the day. denies: drowsiness while driving Initial [place] Sleepiness Scale score: 4 (08/10/23) Current [place] Sleepiness Scale score: 6 Allergies and Home Medications Known drug allergies: No Drug allergies reviewed: Yes Home medication list reviewed: Yes (no changes) Allergy and home medication list: Allergies No Known Drug Allergies Allergy (Verified 01/09/24 15:45) Review of Systems Review of systems same as previous: Yes (no changes) Physical Exam Vital signs obtained and entered by: SHERRY BRAGG-Sarabjit Blood Pressure: 133/66 Cuff size: regular (right arm) Heart Rate: 59 O2 Saturation: 97 Height: 6 ft 7 in Weight: 241 lb Body Mass Index: 27.1 BMI Classification: Overweight Impression and Plan 1. Obstructive Sleep Apnea-Hypopnea Syndrome, mild, with good treatment compliance and fair apnea control with minimally elevated residual AHI. On CPAP therapy, the patient has noticed that he falls asleep quicker and easier. He was able to use the Angelica full face hybrid Dreamwear mask, large cushion, for a full night and says it was comfortable. He had taken a few days off because of mask and pressure issues he has been having. He also says the water chamber was not completely empty over night and he did not have a dry mouth or bloody nose in the morning. He is happier and feels the pressure is comfortable. His pressure is slightly ineffective but overall significantly reducing apneas. Patient advised to contact me if pressure change is uncomfortable so that it can be adjusted. Goals for apnea control discussed. Patient's apnea severity and rationale for treatment to reduce apnea, improve sleep quality and reduce cardiovascular and cerebrovascular events was reviewed. I also reviewed the benefit of consistent device use of CPAP for hypertension, arrhythmia (Afib). 2. Overweight, unspecified. Currently patients BMI is 27.1. Obesity increases the risk of apnea, CPAP pressure requirements and overall health risks especially cardiovascular and diabetes. Thus patient is advised to lose weight. * Continue auto CPAP pressure at 6-10 cmH2O * Change mask to Angelica full face Dreamwear, large cushion with DME * Notify me if snoring with mask or feeling that the pressure is too much or too little * Attempt to lose weight * Call this office if any problems using CPAP * Return for follow up in 1-2 months, or sooner if concerns arise Counseling Topics: Spare mask, Weight loss health impact Follow up with Sleep Care in: 1-2 months Visit Type: In Office Time Spent with Patient (minutes): 29 Provider Statement: I spent 100% of the Face to Face Visit with the patient with greater than 50% spent counseling the patient and coordination of care.
[2024-01-11 14:39] VITALS: BP 133/66; O2SAT 97
== END 2024-01-11 13:48 | disposition home or self-care (01) ==
LOC: SC 13:47
PROVIDERS: ATTEND Nurse Practitioner Family
DX: G47.33 Obstructive sleep apnea (adult) (pediatric) (principal)
CPT/HCPCS: 99213; G0463; 99212

== ENCOUNTER 2024-02-21 11:21 | Outpatient (CLI) | payer MEDICARE, BC ==
--- NOTE | 2024-02-21 12:11 | Sleep Patient Instructions ---
Sleep Center Visit Summary - Patient Visit Information Reason for Visit: 6-week follow-up - Patient Instructions Additional Instructions: You were here for follow up of CPAP therapy. Your CPAP therapy will be discontinued. We will have you try positional therapy. You should follow up with sleep care in 3 months. You may contact us sooner for any questions or concerns. - Clinic Information Contact: [facility] [address] [place] [address] [email or web address] T: [phone]
--- NOTE | 2024-02-21 12:16 | SLEEP CARE CONSULTATION ---
Information from patient questionnaire entered by Marianna Weems. I have reviewed and concur with the information entered by Marianna Weems. This document represents the service I personally performed and the decisions made by , Sherry Kline ARNP. History of Present Illness Service Date and Time: 02/21/2024 1121 Previous diagnosis: Mild, Obstructive Sleep Apnea-Hypopnea Syndrome AHI: 7 (09/25/2023) Reason for follow up: other (6 WEEK F/U) Equipment type: CPAP (RESMED Airsense 11; s/u 09/2023) Equipment obtained from: Other ([facility]) Mask style: Full face Prior sleep studies: No Type of Sleep Study: Polysomnography HPI additional information: PAVAN RODRIGUEZ was diagnosed to have mild, AHI 7, obstructive sleep apnea-hypopnea syndrome and returned today for CPAP therapy six week follow-up. Sleep Study - Results Type of Sleep Study: Polysomnography Prior sleep studies: No CPAP Compliance Data - Data Reviewed with Patient Average duration of nightly device use: 4 HRS 35 MINS Compliance rate %: 20 (01/05/24-02/17/24) Current pressure setting (cmH2O): 4-6 Average residual AHI: 5.4 Subjective Missed days of use due to: reports: mask issues Patient concerns: reports: mask discomfort, mask leak noise, dry mouth, nose, throat. denies: aerophagia, air blowing in eyes, condensation in mask/hose, nasal congestion, epistaxis Observed to snore while using device: No Current pressure setting perceived as: too low On therapy, patient: reports: other (He does not feel he sleeps well when using the CPAP. ). denies: drowsiness while driving Initial [place] Sleepiness Scale score: 4 Current [place] Sleepiness Scale score: 6 (02/21/24) Allergies and Home Medications Known drug allergies: No Drug allergies reviewed: Yes Home medication list reviewed: Yes (no changes) Allergy and home medication list: Allergies No Known Drug Allergies Allergy (Verified 01/09/24 16:01) Review of Systems Review of systems same as previous: Yes (no change) Physical Exam Vital signs obtained and entered by: MARIANNA Whipple MA Blood Pressure: 115/61 (LEFT ARM) Cuff size: long Heart Rate: 63 O2 Saturation: 100 Height: 6 ft 7 in Weight: 244 lb 6.4 oz Body Mass Index: 27.5 BMI Classification: Overweight Impression and Plan 1. Obstructive Sleep Apnea-Hypopnea Syndrome, mild, with poor treatment compliance and fair apnea control with elevated residual AHI. Pavan is not tolerating his CPAP. He has tried multiple masks and pressure setting with no relief. I reviewed his sleep study and recommended he try positional therapy. He has shoulder issues but he could find a positional pillow for side sleepers to relieve shoulder pain/pressure when sleeping on his side. I showed him some options. He would like to try positional therapy. I will have him return to sleep center in about 3 months to see how he is doing. I will discontinue CPAP therapy. Patient's apnea severity and rationale for treatment to reduce apnea, improve sleep quality and reduce cardiovascular and cerebrovascular events was reviewed. I also reviewed the benefit of consistent device use of CPAP for hypertension, arrhythmia (atrial fibrillation). 2. Overweight, unspecified. Currently patients BMI is 27.5. Obesity increases the risk of apnea, CPAP pressure requirements and overall health risks especially cardiovascular and diabetes. Thus patient is advised to lose weight. * Discontinue CPAP therapy * Start positional therapy * Attempt to lose weight * Call this office if any problems * Return for follow up in 3 months, or sooner if concerns arise Counseling Topics: Sleeping position, Weight loss health impact Prescriptions: Other (discontinue CPAP) Follow up with Sleep Care in: 3 months (for positional therapy) Visit Type: In Office Time Spent with Patient (minutes): 21 Provider Statement: I spent 100% of the Face to Face Visit with the patient with greater than 50% spent counseling the patient and coordination of care.
[2024-02-21 12:17] VITALS: BP 115/61; O2SAT 100
== END 2024-02-21 11:22 | disposition home or self-care (01) ==
LOC: SC 11:21
PROVIDERS: ATTEND Nurse Practitioner Family
DX: G47.33 Obstructive sleep apnea (adult) (pediatric) (principal); E66.3 Overweight; Z68.27 Body mass index [BMI] 27.0-27.9, adult
CPT/HCPCS: 99213; G0463; 99212